=== PATIENT | male | born 2005 ===

== ENCOUNTER 2023-04-07 07:04 | Inpatient (IN) | payer SELFPAY ==
[~2023-04-07] VITALS: Ht 170 cm; Wt 75.6 kg
[2023-04-07] MEDS ORDERED: NS IV 1000 ML 1,000 ML IV SCH (07:30)
[2023-04-07] MEDS ORDERED: ONDANSETRON 4 MG/2 ML (SDV) Z0FRAN IVP ONE (07:30)
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
[2023-04-07 07:38] LABS: HEMATOCRIT 46 % (40-54); HEMOGLOBIN 15.8 g/dL (13.3-17.7); MEAN CORPUSCULAR HEMOGLOBIN 31 pg (25-34); MEAN CORPUSCULAR HGB CONC 34 g/dL (32-36); MEAN CORPUSCULAR VOLUME 90 fL (80-99); MEAN PLATELET VOLUME 10.8 fL (9.0-12.2); PLATELET COUNT 257 10^3/uL (130-400); WHITE BLOOD COUNT 20.9 10^3/uL (4.3-11.0)
[2023-04-07 07:44] LABS: BILIRUBIN,URINE NEGATIVE (NEGATIVE); CLARITY,URINE SL CLOUDY; COLOR,URINE YELLOW; GLUCOSE, URINE (UA) NEGATIVE (NEGATIVE); KETONES,URINE NEGATIVE (NEGATIVE); LEUKOCYTE ESTERASE ,URINE NEGATIVE (NEGATIVE); NITRITE,URINE NEGATIVE (NEGATIVE); PROTEIN,URINE TRACE (NEGATIVE)
[2023-04-07] MEDS ORDERED: IOHEXOL 350 MG/ML 100 ML (OMNIPAQUE 350) VIAL IV ONE (07:45)
[2023-04-07] MEDS ORDERED: NS 100 ML (IVPB) BAG IV ONE (07:45)
[2023-04-07 07:51] LABS: ALBUMIN 4.5 GM/DL (3.2-4.5); CHLORIDE 105 MMOL/L (98-107); POTASSIUM 3.7 MMOL/L (3.6-5.0); SODIUM 138 MMOL/L (135-145)
[2023-04-07 07:54] LABS: GLUCOSE 147 MG/DL (70-105); TOTAL PROTEIN 7.4 GM/DL (6.4-8.2)
[2023-04-07 07:55] LABS: CARBON DIOXIDE 22 MMOL/L (21-32)
[2023-04-07 07:56] LABS: BILIRUBIN,TOTAL 0.4 MG/DL (0.1-1.0)
[2023-04-07 07:57] LABS: ALKALINE PHOSPHATASE 96 U/L (40-136)
[2023-04-07 07:58] LABS: CREATININE SERUM 0.84 MG/DL (0.60-1.30); GFR ESTIMATED 129
[2023-04-07 07:58] LABS: AMPHETAMINE SCREEN, URINE NEGATIVE (NEGATIVE); BARBITURATE SCREEN URINE NEGATIVE (NEGATIVE); BENZODIAZEPINES SCREEN URINE NEGATIVE (NEGATIVE); CANNABINOID SCREEN, URINE POSITIVE (NEGATIVE); COCAINE SCREEN URINE NEGATIVE (NEGATIVE); METHADONE STAT NEGATIVE (NEGATIVE); OPIATE SCREEN URINE NEGATIVE (NEGATIVE); OXYCODONE STAT NEGATIVE (NEGATIVE); PROPOXYPHENE STAT NEGATIVE (NEGATIVE); TRICYCLIC ANTIDEPRESSANTS SCRE NEGATIVE (NEGATIVE)
[2023-04-07 07:59] LABS: BILIRUBIN,DIRECT 0.2 MG/DL (0.0-0.3); BILIRUBIN,INDIRECT 0.2 MG/DL; BUN/CREATININE RATIO 17
[2023-04-07 08:00] LABS: ALANINE AMINOTRANSFERASE 49 U/L (0-55)
[2023-04-07 08:00] LABS: AMORPHOUS SEDIMENT,UR RARE AMOR URATES /LPF; BACTERIA,URINE NEGATIVE /HPF; WBC,URINE RARE /HPF
[2023-04-07 08:01] LABS: CREATINE KINASE 1569 U/L (30-200)
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
[2023-04-07] MEDS ORDERED: NS IV 1000 ML 1,000 ML IV STA (10:04)
[2023-04-07] MEDS ORDERED: fentaNYL INJ 100 MCG/2 ML AMP IVP ONE (10:15)
[2023-04-07] MEDS ORDERED: metroNIDAZOLE 500MG/100ML IVPB 100 ML IV ONE (10:15)
[2023-04-07] MEDS ORDERED: CIPROFLOXACIN IV 400MG/200ML 200 ML IV ONE (10:15)
[2023-04-07 11:35] VITALS: BP 132/69
[2023-04-07 11:55] VITALS: BP 142/80
[2023-04-07] MEDS ORDERED: ACETAMINOPHEN 500 MG TAB (TYLENOL) PO PRN (12:15)
[2023-04-07] MEDS: NS IV 1000 ML 1,000 ML IV SCH ×2 (12:25→20:19)
[2023-04-07] MEDS ORDERED: fentaNYL INJ 100 MCG/2 ML AMP IV PRN (12:30)
[2023-04-07] MEDS ORDERED: RT-ALBUTEROL SULF 2.5 MG/3 ML PRE-MIX VIAL INH PRN (14:00)
[2023-04-07] MEDS ORDERED: ONDANSETRON 4 MG/2 ML (SDV) Z0FRAN IV PRN (15:00)
[2023-04-07] MEDS: fentaNYL INJ 100 MCG/2 ML AMP IV PRN ×4 (15:05→22:56)
[2023-04-07 15:15] VITALS: BP 141/78
[2023-04-07] MEDS: HYDROcodone/APAP 7.5 MG/325 MG (LORTAB, LORCET PLUS) TABLET PO PRN ×2 (15:58→21:00)
[2023-04-07] MEDS: metroNIDAZOLE 500 MG/100 ML IVPB (PRE-MIX) IV SCH (18:19)
[2023-04-07 20:08] VITALS: BP 131/61
[2023-04-07] MEDS: CIPROFLOXACIN IV 400MG/200ML 200 ML IV SCH (20:19)
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
[2023-04-08] VITALS (15 sets, daily range): BP systolic 128–149; BP diastolic 58–91
[2023-04-08] MEDS: metroNIDAZOLE 500 MG/100 ML IVPB (PRE-MIX) IV SCH ×3 (01:00→18:44)
[2023-04-08] MEDS: HYDROcodone/APAP 7.5 MG/325 MG (LORTAB, LORCET PLUS) TABLET PO PRN ×2 (01:01→05:18)
[2023-04-08] MEDS: fentaNYL INJ 100 MCG/2 ML AMP IV PRN ×8 (03:46→13:22)
[2023-04-08] MEDS: NS IV 1000 ML 1,000 ML IV SCH ×3 (04:24→20:49)
[2023-04-08 05:42] LABS: BASOPHILS % (AUTO) 0 % (0-10); EOSINOPHILS % (AUTO) 0 % (0-10); HEMATOCRIT 41 % (40-54); LYMPHOCYTES # (AUTO) 1.2 10^3/uL (1.0-4.0); LYMPHOCYTES % (AUTO) 7 % (12-44); MEAN CORPUSCULAR HEMOGLOBIN 31 pg (25-34); MEAN CORPUSCULAR HGB CONC 34 g/dL (32-36); MEAN CORPUSCULAR VOLUME 90 fL (80-99); MEAN PLATELET VOLUME 10.5 fL (9.0-12.2); MONOCYTES # (AUTO) 1.1 10^3/uL (0.0-1.0); MONOCYTES % (AUTO) 6 % (0-12); NEUTROPHILS # (AUTO) 14.3 10^3/uL (1.8-7.8); NEUTROPHILS % (AUTO) 86 % (42-75); PLATELET COUNT 202 10^3/uL (130-400); WHITE BLOOD COUNT 16.6 10^3/uL (4.3-11.0)
[2023-04-08 05:48] LABS: ALBUMIN 3.7 GM/DL (3.2-4.5); POTASSIUM 3.7 MMOL/L (3.6-5.0)
[2023-04-08 05:49] LABS: CALCIUM 8.8 MG/DL (8.5-10.1)
[2023-04-08 05:50] LABS: TOTAL PROTEIN 6.5 GM/DL (6.4-8.2)
[2023-04-08 05:52] LABS: BILIRUBIN,TOTAL 1.2 MG/DL (0.1-1.0)
[2023-04-08 05:54] LABS: CREATININE SERUM 0.77 MG/DL (0.60-1.30)
[2023-04-08 06:18] LABS: BAND NEUTROPHILS 1 %; NEUTROPHILS % (MANUAL) 89 %
[2023-04-08 06:19] LABS: LYMPHOCYTES % (MANUAL) 7 %; MONOCYTES % (MANUAL) 3 %; RBC MORPH NORMAL
[2023-04-08] MEDS: PANTOPRAZOLE 40 MG (PROTONIX) VIAL IV SCH (07:57)
[2023-04-08] MEDS: CIPROFLOXACIN IV 400MG/200ML 200 ML IV SCH ×2 (07:57→20:55)
[2023-04-08] MEDS ORDERED: IOHEXOL 350 MG/ML 100 ML (OMNIPAQUE 350) VIAL IV ONE (08:15)
[2023-04-08] MEDS ORDERED: HOLD METFORMIN - RECEIVED CONTRAST 20 ML VIAL IV SCH (08:15)
[2023-04-08] MEDS ORDERED: NS 100 ML (IVPB) BAG IV ONE (08:15)
--- NOTE | 2023-04-08 09:34 | Diagnostic Imaging Report ---
EXAMINATION: CT abdomen and pelvis with intravenous contrast. TECHNIQUE: Multiple contiguous axial images were obtained through the abdomen and pelvis after the uneventful administration of intravenous contrast. All CT scans use one or more of the following dose optimizing techniques: automated exposure control, MA and/or KvP adjustment based on patient size and exam type or iterative reconstruction. HISTORY: Left abdominal mass. COMPARISON: 04/07/2023. FINDINGS: Limited views of the lower thorax are unremarkable. The liver is normal without focal lesion. There is no biliary ductal dilation. Gallbladder is normal. Pancreas is normal. Spleen is normal. Adrenal glands are normal. 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 No suspicious renal lesion. There is no hydronephrosis. Bladder is decompressed by a Moore catheter. Small bowel loops are now diffusely dilated. The inflammation surrounding the sigmoid colon has increased and there is now air in the mesentery of the sigmoid colon. There are several ill-defined pockets of fluid but no loculated drainable abscess. The bowel wall thickening straddles the peritoneal reflection with the majority of the abnormality above the peritoneal reflection but the high rectum is abnormally thickened. There is a generalized small amount of free fluid in the abdomen. No abdominal or pelvic lymphadenopathy. Aorta is normal in caliber without aneurysm. There are no suspicious osseus lesions. IMPRESSION: 1. Increase in inflammation about the sigmoid colon with persistent wall thickening and increasing mesenteric stranding. There are now a few locules of gas within the mesentery in keeping with perforation. In a young patient with history of trauma, primary concern is for a large bowel injury. Differential includes a perforated mass. 2. Dilated small bowel, likely representing an ileus. 3. Findings called to Dr. Chadwick by Dr. Barrett on 04/08/2023 at 9:30 AM. Dictated by: Dictated on workstation # [id number]
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
[2023-04-08] MEDS ORDERED: SEVOFLURANE (ULTANE) 15 ML INHAL SOLN ONE ×3 (13:57→16:57)
[2023-04-08] MEDS ORDERED: ROCURONIUM 50 MG/5 ML (ZEMURON) VIAL IV ONE (13:57)
[2023-04-08] MEDS ORDERED: LIDOCAINE PF 2% 5 ML (XYLOCAINE) VIAL ONE (13:57)
[2023-04-08] MEDS ORDERED: fentaNYL INJ 100 MCG/2 ML AMP ONE ×2 (13:57→15:14)
[2023-04-08] MEDS ORDERED: MIDAZOLAM 2 MG/2 ML (VERSED) VIAL ONE (13:57)
[2023-04-08] MEDS ORDERED: proPOfol 200 MG/20 ML (DIPRIVAN) VIAL IV ONE (13:57)
[2023-04-08] MEDS ORDERED: ONDANSETRON 4 MG/2 ML (SDV) Z0FRAN ONE (13:57)
[2023-04-08] MEDS: LACTATED RINGERS 1,000 ML IV PRN ×2 (14:39→16:20)
[2023-04-08] MEDS ORDERED: ESMOLOL 100 MG/10 ML (BREVIBLOC) VIAL ONE (14:58)
[2023-04-08] MEDS ORDERED: ROPIVACAINE 5MG/ML 30ML VIAL ONE (15:58)
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
[2023-04-08] MEDS ORDERED: NALOXONE 0.4 MG/ML 1 ML (NARCAN) VIAL IV PRN (17:15)
[2023-04-08] MEDS ORDERED: diphenhydrAMINE 50 MG/ML INJ (BENADRYL) IV PRN (17:15)
[2023-04-08] MEDS ORDERED: NS IV 1000 ML 1,000 ML IV SCH (17:15)
[2023-04-08] MEDS ORDERED: fentaNYL PCA 1,000 MCG/100 ML 100 ML IV PRN (17:15)
[2023-04-08] MEDS ORDERED: morphine INJ 10 MG/ML 1ML (SYR OR VIAL) ONE (17:33)
[2023-04-08] MEDS: morphine INJ 10 MG/ML 1ML (SYR OR VIAL) IVP ONE ×2 (17:40→18:07)
[2023-04-08] MEDS ORDERED: morphine INJ 10 MG/ML 1ML (SYR OR VIAL) IVP ONE (18:00)
[2023-04-08] MEDS ORDERED: ONDANSETRON 4 MG/2 ML (SDV) Z0FRAN IVP PRN (18:00)
[2023-04-08] MEDS: ONDANSETRON 4 MG/2 ML (SDV) Z0FRAN IVP PRN ×2 (18:07→18:08)
[2023-04-08] MEDS: RT-ALBUTEROL SULF 2.5 MG/3 ML PRE-MIX VIAL INH SCH (22:09)
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
[2023-04-09] MEDS: NS IV 1000 ML 1,000 ML IV SCH ×2 (01:39→08:42)
[2023-04-09] MEDS: metroNIDAZOLE 500 MG/100 ML IVPB (PRE-MIX) IV SCH ×3 (01:39→17:46)
[2023-04-09 03:59] VITALS: BP 132/76
[2023-04-09] MEDS: HYDROcodone/APAP 7.5 MG/325 MG (LORTAB, LORCET PLUS) TABLET PO PRN ×2 (05:54→12:13)
[2023-04-09] MEDS: METOCLOPRAMIDE INJ 10 MG/2 ML (REGLAN) IV PRN ×2 (05:57→21:15)
[2023-04-09] MEDS: RT-ALBUTEROL SULF 2.5 MG/3 ML PRE-MIX VIAL INH SCH (07:14)
[2023-04-09 07:30] VITALS: BP 132/65
--- NOTE | 2023-04-09 08:18 | Anesthesia-General Post-Op ---
General Patient Condition Mental Status/LOC: Same as Preop Cardiovascular: Satisfactory Nausea/Vomiting: Absent Respiratory: Satisfactory Pain: Uncontrolled Complications: Absent Post Op Complications Complications None Follow Up Care/Instructions Patient Instructions None needed. Anesthesia/Patient Condition Patient Condition Patient is doing well, no complaints, stable vital signs, no apparent adverse anesthesia problems. No complications reported per nursing. D/C home per [facility] Criteria: AASHISH Harris CRNA Apr 09, 2023 08:18
[2023-04-09] MEDS: PANTOPRAZOLE 40 MG (PROTONIX) VIAL IV SCH (08:42)
[2023-04-09] MEDS: CIPROFLOXACIN IV 400MG/200ML 200 ML IV SCH ×2 (08:45→21:11)
[2023-04-09 11:32] LABS: BASOPHILS % (AUTO) 0 % (0-10); EOSINOPHILS % (AUTO) 0 % (0-10); HEMATOCRIT 35 % (40-54); LYMPHOCYTES # (AUTO) 0.6 10^3/uL (1.0-4.0); LYMPHOCYTES % (AUTO) 5 % (12-44); MEAN CORPUSCULAR HEMOGLOBIN 31 pg (25-34); MEAN CORPUSCULAR HGB CONC 35 g/dL (32-36); MEAN CORPUSCULAR VOLUME 91 fL (80-99); MEAN PLATELET VOLUME 10.6 fL (9.0-12.2); MONOCYTES # (AUTO) 1.2 10^3/uL (0.0-1.0); MONOCYTES % (AUTO) 9 % (0-12); NEUTROPHILS # (AUTO) 11.3 10^3/uL (1.8-7.8); NEUTROPHILS % (AUTO) 86 % (42-75); PLATELET COUNT 188 10^3/uL (130-400); WHITE BLOOD COUNT 13.3 10^3/uL (4.3-11.0)
[2023-04-09 11:39] LABS: POTASSIUM 3.9 MMOL/L (3.6-5.0)
[2023-04-09 11:40] LABS: CALCIUM 8.4 MG/DL (8.5-10.1)
[2023-04-09 11:42] VITALS: BP 134/76
[2023-04-09 11:44] LABS: CREATININE SERUM 0.73 MG/DL (0.60-1.30)
[2023-04-09] MEDS ORDERED: HYDROmorphone 2 MG/ML VIAL (DILAUDID) IV NR (14:00)
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
[2023-04-09 15:48] VITALS: BP 141/73
[2023-04-09 19:38] VITALS: BP 140/79
[2023-04-09] MEDS: ONDANSETRON 4 MG/2 ML (SDV) Z0FRAN IV PRN (20:18)
[2023-04-09] MEDS: HYDROmorphone 2 MG/ML VIAL (DILAUDID) IVP PRN (21:23)
[2023-04-09 23:36] VITALS: BP 136/72
[2023-04-10] MEDS: metroNIDAZOLE 500 MG/100 ML IVPB (PRE-MIX) IV SCH ×3 (01:08→17:20)
[2023-04-10] MEDS: HYDROmorphone 2 MG/ML VIAL (DILAUDID) IVP PRN ×8 (01:08→19:56)
[2023-04-10] MEDS: METOCLOPRAMIDE INJ 10 MG/2 ML (REGLAN) IV PRN ×2 (03:30→08:38)
[2023-04-10 04:00] VITALS: BP 139/72
[2023-04-10] MEDS: NS IV 1000 ML 1,000 ML IV SCH ×4 (05:15→14:48)
[2023-04-10 07:33] VITALS: BP 148/92
[2023-04-10 08:05] LABS: BASOPHILS % (AUTO) 0 % (0-10); EOSINOPHILS % (AUTO) 0 % (0-10); HEMATOCRIT 40 % (40-54); HEMOGLOBIN 13.5 g/dL (13.3-17.7); LYMPHOCYTES # (AUTO) 0.9 10^3/uL (1.0-4.0); LYMPHOCYTES % (AUTO) 6 % (12-44); MEAN CORPUSCULAR HEMOGLOBIN 31 pg (25-34); MEAN CORPUSCULAR HGB CONC 34 g/dL (32-36); MEAN CORPUSCULAR VOLUME 91 fL (80-99); MONOCYTES # (AUTO) 1.3 10^3/uL (0.0-1.0); MONOCYTES % (AUTO) 8 % (0-12); NEUTROPHILS # (AUTO) 13.4 10^3/uL (1.8-7.8); NEUTROPHILS % (AUTO) 85 % (42-75); PLATELET COUNT 272 10^3/uL (130-400); WHITE BLOOD COUNT 15.7 10^3/uL (4.3-11.0)
[2023-04-10 08:17] LABS: CALCIUM 8.7 MG/DL (8.5-10.1)
[2023-04-10 08:22] LABS: CREATININE SERUM 0.7 MG/DL (0.60-1.30)
[2023-04-10] MEDS: CIPROFLOXACIN IV 400MG/200ML 200 ML IV SCH ×2 (08:26→22:31)
[2023-04-10] MEDS: PANTOPRAZOLE 40 MG (PROTONIX) VIAL IV SCH ×2 (08:26→22:31)
[2023-04-10] MEDS: RT-ALBUTEROL SULF 2.5 MG/3 ML PRE-MIX VIAL INH SCH ×3 (09:03→20:23)
[2023-04-10] MEDS: ONDANSETRON 4 MG/2 ML (SDV) Z0FRAN IV PRN (11:20)
[2023-04-10 11:47] VITALS: BP 170/105
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
[2023-04-10] MEDS: HYDROcodone/APAP 7.5 MG/325 MG (LORTAB, LORCET PLUS) TABLET PO PRN (12:12)
--- NOTE | 2023-04-10 13:47 | Physical Therapy Progress Note ---
Therapy Progress Note Patient on Hold per RN due to current medical condition. PT will attempt tomorrow COLE Shane PT Apr 10, 2023 13:47
[2023-04-10] MEDS: PROMETHAZINE INJ 25 MG/ML (PHENERGAN) AMP IVP PRN ×2 (14:18→17:19)
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
[2023-04-10 14:48] LABS: ALBUMIN 3.2 GM/DL (3.2-4.5)
[2023-04-10 14:53] LABS: BILIRUBIN,TOTAL 0.5 MG/DL (0.1-1.0)
[2023-04-10 14:56] LABS: BILIRUBIN,DIRECT 0.2 MG/DL (0.0-0.3); BILIRUBIN,INDIRECT 0.3 MG/DL
[2023-04-10 15:42] VITALS: BP 143/94
[2023-04-10] MEDS ORDERED: IOHEXOL 350 MG/ML 100 ML (OMNIPAQUE 350) VIAL IV ONE (17:15)
[2023-04-10] MEDS ORDERED: NS 100 ML (IVPB) BAG IV ONE (17:15)
--- NOTE | 2023-04-10 17:17 | Diagnostic Imaging Report ---
PROCEDURE: CT abdomen and pelvis with and without contrast. TECHNIQUE: Precontrast acquisitions were acquired through the abdomen and pelvis. Multiple contiguous axial images were obtained through the abdomen and pelvis after the administration of intravenous contrast. Auto Exposure Controls were utilized during the CT exam to meet ALARA standards for radiation dose reduction. INDICATION: Two days postop bowel resection with worsening pain and nausea. COMPARISON: Exam is compared with the study of 04/08/2023. FINDINGS: There are tiny nonloculated pleural effusions and subjacent basilar atelectasis. There is gastric, duodenal, and diffuse small bowel dilatation with differential air-fluid levels. The magnitude of bowel dilatation is suspicious for a high-grade small bowel obstruction. Small bowel caliber is maximal 5 cm. There is a staple line at the rectosigmoid and a new left lower quadrant diverting ostomy. Interval postsurgical change, presumed to account for the extraluminal gas deep to the lower abdominopelvic wall. The colon is nondilated. There does appear to be a short segment of nondilated terminal ileum in the right lower quadrant; however, the remaining small bowel is severely dilated. Liver, spleen, adrenals, and pancreas are unremarkable. 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 No contrast extravasation. The urinary bladder is unremarkable. No findings of hemorrhage. IMPRESSION: 1. Findings suspect for high-grade distal small bowel obstruction. Interval surgical changes to the large bowel and left lower quadrant ostomy. Extraluminal gas presumed postop with no abscess or other drainable fluid collection, and no findings of hemorrhage. 2. Trace pleural effusions. Congenital horseshoe kidney without obstruction of either nonacute renal moiety. Dictated by: Dictated on workstation # [id number]
--- NOTE | 2023-04-10 17:49 | Diagnostic Imaging Report ---
INDICATION: NG tube placement. EXAMINATION: Abdominal film obtained at 5:46 p.m. FINDINGS: Heart is normal in size. It is also otherwise unremarkable. The lungs are clear. There is no pneumothorax or pleural fluid. There is a left-sided subclavian central line with tip overlying the low SVC. NG tube is looped in the stomach with tip near the GE junction. IMPRESSION: No focal infiltrate or pneumothorax or pleural fluid. NG tube is looped in the stomach with tip back near the GE junction. Left subclavian central catheter, as above. Dictated by: Dictated on workstation # [id number]
[2023-04-10] MEDS: ENALAPRIL 10 MG (VASOTEC) TAB PO SCH (18:27)
[2023-04-10] MEDS ORDERED: CHLORASEPTIC SPRAY 177 ML LIQUID MC PRN (20:30)
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
[2023-04-10 21:20] VITALS: BP 141/90
[2023-04-10 23:58] VITALS: BP 136/86
[2023-04-11] VITALS (7 sets, daily range): BP systolic 129–146; BP diastolic 63–81
[2023-04-11] MEDS: HYDROmorphone 2 MG/ML VIAL (DILAUDID) IVP PRN ×6 (00:44→20:34)
[2023-04-11] MEDS: ENALAPRIL 10 MG (VASOTEC) TAB PO SCH ×4 (00:49→15:10)
[2023-04-11] MEDS: NS IV 1000 ML 1,000 ML IV SCH ×3 (01:55→17:00)
[2023-04-11] MEDS: metroNIDAZOLE 500 MG/100 ML IVPB (PRE-MIX) IV SCH ×3 (02:00→17:00)
[2023-04-11 04:35] LABS: BASOPHILS % (AUTO) 0 % (0-10); EOSINOPHILS % (AUTO) 0 % (0-10); HEMATOCRIT 36 % (40-54); HEMOGLOBIN 11.8 g/dL (13.3-17.7); LYMPHOCYTES # (AUTO) 1.2 10^3/uL (1.0-4.0); LYMPHOCYTES % (AUTO) 11 % (12-44); MEAN CORPUSCULAR HEMOGLOBIN 30 pg (25-34); MEAN CORPUSCULAR HGB CONC 33 g/dL (32-36); MEAN CORPUSCULAR VOLUME 91 fL (80-99); MEAN PLATELET VOLUME 10.1 fL (9.0-12.2); MONOCYTES # (AUTO) 1.2 10^3/uL (0.0-1.0); MONOCYTES % (AUTO) 10 % (0-12); NEUTROPHILS # (AUTO) 9.2 10^3/uL (1.8-7.8); NEUTROPHILS % (AUTO) 78 % (42-75); PLATELET COUNT 278 10^3/uL (130-400); WHITE BLOOD COUNT 11.7 10^3/uL (4.3-11.0)
[2023-04-11 04:47] LABS: CALCIUM 8.1 MG/DL (8.5-10.1); CREATININE SERUM 0.67 MG/DL (0.60-1.30); POTASSIUM 3.6 MMOL/L (3.6-5.0)
[2023-04-11] MEDS: RT-ALBUTEROL SULF 2.5 MG/3 ML PRE-MIX VIAL INH SCH ×2 (07:18→22:27)
[2023-04-11] MEDS: CIPROFLOXACIN IV 400MG/200ML 200 ML IV SCH ×2 (08:16→20:34)
[2023-04-11] MEDS: PANTOPRAZOLE 40 MG (PROTONIX) VIAL IV SCH ×2 (08:16→20:34)
--- NOTE | 2023-04-11 08:44 | Diagnostic Imaging Report ---
EXAMINATION: Chest 1 view HISTORY: Tube placement COMPARISON: 04/10/2023 FINDINGS: Gastric tube is in the stomach. Left subclavian catheter is in the superior vena cava. A safety pin projects over the chest. No edema or pneumonia. No pleural effusion or pneumothorax. Heart size is normal. Bowel loops are severely dilated in the upper abdomen. IMPRESSION: 1. Clear lungs. 2. Dilated bowel loops in the upper abdomen. Dictated by: Dictated on workstation # [id number]
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
[2023-04-11] MEDS: PROMETHAZINE INJ 25 MG/ML (PHENERGAN) AMP IVP PRN (12:08)
[2023-04-11] MEDS ORDERED: hydrALAZINE (APESOLINE) 20 MG/ML VIAL IV PRN (15:45)
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
[2023-04-11] MEDS: ONDANSETRON 4 MG/2 ML (SDV) Z0FRAN IV PRN (17:00)
[2023-04-12] MEDS: NS IV 1000 ML 1,000 ML IV SCH ×3 (02:25→22:48)
[2023-04-12] MEDS: metroNIDAZOLE 500 MG/100 ML IVPB (PRE-MIX) IV SCH ×3 (02:25→17:07)
[2023-04-12] MEDS: HYDROmorphone 2 MG/ML VIAL (DILAUDID) IVP PRN ×6 (02:25→17:29)
[2023-04-12 04:05] VITALS: BP 127/50
[2023-04-12 04:21] LABS: BASOPHILS % (AUTO) 0 % (0-10); EOSINOPHILS # (AUTO) 0.1 10^3/uL (0.0-0.3); EOSINOPHILS % (AUTO) 1 % (0-10); HEMATOCRIT 32 % (40-54); HEMOGLOBIN 10.6 g/dL (13.3-17.7); LYMPHOCYTES # (AUTO) 1.4 10^3/uL (1.0-4.0); LYMPHOCYTES % (AUTO) 13 % (12-44); MEAN CORPUSCULAR HEMOGLOBIN 30 pg (25-34); MEAN CORPUSCULAR HGB CONC 33 g/dL (32-36); MEAN CORPUSCULAR VOLUME 91 fL (80-99); MEAN PLATELET VOLUME 9.1 fL (9.0-12.2); MONOCYTES % (AUTO) 9 % (0-12); NEUTROPHILS # (AUTO) 8.4 10^3/uL (1.8-7.8); NEUTROPHILS % (AUTO) 76 % (42-75); PLATELET COUNT 255 10^3/uL (130-400); WHITE BLOOD COUNT 11.1 10^3/uL (4.3-11.0)
[2023-04-12 04:35] LABS: CALCIUM 7.9 MG/DL (8.5-10.1); CREATININE SERUM 0.6 MG/DL (0.60-1.30); POTASSIUM 3.7 MMOL/L (3.6-5.0)
[2023-04-12 07:47] VITALS: BP 137/64
[2023-04-12] MEDS: RT-ALBUTEROL SULF 2.5 MG/3 ML PRE-MIX VIAL INH SCH ×2 (08:16→19:34)
[2023-04-12] MEDS: CIPROFLOXACIN IV 400MG/200ML 200 ML IV SCH ×2 (08:16→20:42)
[2023-04-12] MEDS: PANTOPRAZOLE 40 MG (PROTONIX) VIAL IV SCH ×2 (08:16→20:42)
[2023-04-12] MEDS ORDERED: LORazepam INJ 2 MG/ML (ATIVAN) VIAL IVP PRN (10:30)
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
[2023-04-12] MEDS: METOCLOPRAMIDE INJ 10 MG/2 ML (REGLAN) IVP SCH ×3 (11:17→22:48)
[2023-04-12 11:28] VITALS: BP 143/80
[2023-04-12] MEDS: HYDROcodone/APAP 7.5 MG/325 MG (LORTAB, LORCET PLUS) TABLET PO PRN ×2 (16:29→22:24)
[2023-04-12 16:36] VITALS: BP 139/76
[2023-04-12 20:29] VITALS: BP 134/67
[2023-04-12 23:33] VITALS: BP 141/66
[2023-04-13] MEDS: metroNIDAZOLE 500 MG/100 ML IVPB (PRE-MIX) IV SCH ×3 (02:05→17:26)
[2023-04-13] MEDS: HYDROcodone/APAP 7.5 MG/325 MG (LORTAB, LORCET PLUS) TABLET PO PRN ×3 (02:08→14:49)
[2023-04-13 04:27] VITALS: BP 129/74
[2023-04-13] MEDS: METOCLOPRAMIDE INJ 10 MG/2 ML (REGLAN) IVP SCH ×3 (05:38→17:26)
[2023-04-13 05:54] LABS: BASOPHILS % (AUTO) 0 % (0-10); EOSINOPHILS # (AUTO) 0.1 10^3/uL (0.0-0.3); EOSINOPHILS % (AUTO) 1 % (0-10); HEMATOCRIT 33 % (40-54); HEMOGLOBIN 11.5 g/dL (13.3-17.7); LYMPHOCYTES # (AUTO) 1.6 10^3/uL (1.0-4.0); LYMPHOCYTES % (AUTO) 12 % (12-44); MEAN CORPUSCULAR HEMOGLOBIN 31 pg (25-34); MEAN CORPUSCULAR HGB CONC 35 g/dL (32-36); MEAN CORPUSCULAR VOLUME 90 fL (80-99); MEAN PLATELET VOLUME 9.2 fL (9.0-12.2); MONOCYTES % (AUTO) 7 % (0-12); NEUTROPHILS # (AUTO) 10.6 10^3/uL (1.8-7.8); NEUTROPHILS % (AUTO) 78 % (42-75); PLATELET COUNT 285 10^3/uL (130-400); WHITE BLOOD COUNT 13.5 10^3/uL (4.3-11.0)
[2023-04-13 06:14] LABS: CALCIUM 8.1 MG/DL (8.5-10.1); CREATININE SERUM 0.64 MG/DL (0.60-1.30); POTASSIUM 3.8 MMOL/L (3.6-5.0)
[2023-04-13] MEDS: RT-ALBUTEROL SULF 2.5 MG/3 ML PRE-MIX VIAL INH SCH ×2 (07:07→21:57)
[2023-04-13 07:35] VITALS: BP 119/68
[2023-04-13] MEDS: PANTOPRAZOLE 40 MG (PROTONIX) VIAL IV SCH ×2 (08:17→20:01)
[2023-04-13] MEDS: NS IV 1000 ML 1,000 ML IV SCH ×3 (08:18→20:29)
[2023-04-13] MEDS: CIPROFLOXACIN IV 400MG/200ML 200 ML IV SCH ×2 (08:18→20:01)
--- NOTE | 2023-04-13 11:16 | Occ Therapy Progress Note ---
Therapy Progress Note Per PT, patient is ambulatory w/ family and performs tasks w/o assist, discontinue OT LETY smith MICHELLE OT Apr 13, 2023 11:16
[2023-04-13] MEDS: HYDROmorphone 2 MG/ML VIAL (DILAUDID) IVP PRN (11:28)
[2023-04-13 12:00] VITALS: BP 124/69
--- NOTE | 2023-04-13 12:57 | Diagnostic Imaging Report ---
INDICATION: Ileus. Postoperative abdomen. COMPARISON: 04/10/2023. FINDINGS: Multiple frontal radiographic views of the abdomen were obtained. Radiopaque tubing is again noted projecting over the lower abdomen and upper pelvis. Surgical skin angie are present. Ostomy site is noted within the left lower abdominal quadrant. No unexpected radiopaque foreign bodies are seen. There is no large collection of free intraperitoneal air. Multiple air-filled moderately distended loops of small bowel are noted throughout. Residual air and stool is also seen within the colon. Included portions of the lung bases are clear. Osseous structures show no acute abnormalities. IMPRESSION: 1. Moderate diffuse gaseous distention of the small bowel. Postoperative ileus is favored. Dictated by: Dictated on workstation # [id number]
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
[2023-04-13] MEDS ORDERED: HYPOCHLOROUS ACID/NaCl (VASHE) 250 ML IR PRN (15:15)
[2023-04-13 16:14] VITALS: BP 133/73
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
[2023-04-13] MEDS ORDERED: KETOROLAC 30 MG/ML VIAL IVP NR (17:15)
[2023-04-13 19:04] VITALS: BP 132/79
[2023-04-13] MEDS: oxyCODONE/APAP 10/325MG (PERCOCET 10) TABLET PO PRN (21:12)
[2023-04-14 00:51] VITALS: BP 118/72
[2023-04-14] MEDS: metroNIDAZOLE 500 MG/100 ML IVPB (PRE-MIX) IV SCH ×2 (00:55→09:13)
[2023-04-14] MEDS: METOCLOPRAMIDE INJ 10 MG/2 ML (REGLAN) IVP SCH ×3 (00:55→12:27)
[2023-04-14 02:57] VITALS: BP 126/74
[2023-04-14] MEDS: oxyCODONE/APAP 10/325MG (PERCOCET 10) TABLET PO PRN ×2 (03:01→07:14)
[2023-04-14] MEDS: ONDANSETRON 4 MG/2 ML (SDV) Z0FRAN IV PRN (03:11)
[2023-04-14] MEDS: NS IV 1000 ML 1,000 ML IV SCH ×2 (05:04→12:27)
[2023-04-14 07:45] VITALS: BP 120/60
[2023-04-14] MEDS: RT-ALBUTEROL SULF 2.5 MG/3 ML PRE-MIX VIAL INH SCH (07:57)
[2023-04-14] MEDS: PANTOPRAZOLE 40 MG (PROTONIX) VIAL IV SCH (07:58)
[2023-04-14] MEDS: CIPROFLOXACIN IV 400MG/200ML 200 ML IV SCH (07:59)
[2023-04-14] MEDS ORDERED: HYDR-3817 PO (11:49)
[2023-04-14] MEDS ORDERED: AMOX1TAB12 PO (11:49)
--- NOTE | 2023-04-14 11:50 | Discharge Inst-Surgical ---
D/C Lap Instructions-SARAH New, Converted, or Re-Newed RX: RX on Chart Follow Up Appt in 1 week Activity as tolerated No driving for 24 hours No driving while on pain medications Incentive Spirometry use every 2 hours while awake Regular Diet Symptoms to Report: Fever over 101 degree F, Nausea/Vomiting Infection Signs and Symptoms to report: Increased redness, Foul odor of wound, Increased drainage Bathing instructions: May shower Operative Area Clean/Dry; Keep incision clean/dry If any problems/questions: Contact your physician or go to Emergency Room JEAN SIMTH MD Apr 14, 2023 11:50
[2023-04-14 12:26] VITALS: BP 124/59
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
== END 2023-04-14 15:35 | disposition home health service (06) | DRG 330 ==
LOC: ER 07:08 → 4TH 11:18 → OBSVTOIN 04-08 13:57
PROVIDERS: ADMIT Surgery; ATTEND Surgery
PROC: 0DB80ZZ Excision of Small Intestine, Open Approach (ICD-10-PCS; 2023-04-08)
PROC: 02HV33Z Insertion of Infusion Device into Superior Vena Cava, Percutaneous Approach (ICD-10-PCS; 2023-04-08)
PROC: 0DTN0ZZ Resection of Sigmoid Colon, Open Approach (ICD-10-PCS; principal; 2023-04-08 14:39)
PROC: 0DBP0ZZ Excision of Rectum, Open Approach (ICD-10-PCS; 2023-04-08 14:39)
DX: S36.533A Laceration of sigmoid colon, initial encounter (principal); K91.30 Postprocedural intestinal obstruction, unspecified as to partial versus complete; S36.438A Laceration of other part of small intestine, initial encounter; V89.2XXA Person injured in unspecified motor-vehicle accident, traffic, initial encounter; F41.9 Anxiety disorder, unspecified; S06.0X0A Concussion without loss of consciousness, initial encounter; S20.212A Contusion of left front wall of thorax, initial encounter; S93.401A Sprain of unspecified ligament of right ankle, initial encounter; I10 Essential (primary) hypertension
CPT/HCPCS: 36415; 51702; 70450; 70498; 71045; 71260; 72170; 74018; 74019; 74177; 74178; 80048; 80053; 80076; 80306; 80320; 81000; 82550; 82947; 85007; 85025; 85027; 93005; 93041; 94640; 94664; 94760; 96361; 96365; 96367; 96368; 96375; G0378

== ENCOUNTER 2023-04-23 16:56 | Observation (INO) | payer SELFPAY ==
[~2023-04-23] VITALS: Ht 167 cm; Wt 68.4 kg
[~2023-04-23 16:56] MED LIST: AMOX1TAB12 PO; HYDR-3817 PO
[2023-04-23 17:15] LABS: BASOPHILS % (AUTO) 0 % (0-10); EOSINOPHILS # (AUTO) 0.1 10^3/uL (0.0-0.3); EOSINOPHILS % (AUTO) 1 % (0-10); HEMATOCRIT 43 % (40-54); HEMOGLOBIN 14.4 g/dL (13.3-17.7); LYMPHOCYTES # (AUTO) 2.5 10^3/uL (1.0-4.0); LYMPHOCYTES % (AUTO) 26 % (12-44); MEAN CORPUSCULAR HEMOGLOBIN 30 pg (25-34); MEAN CORPUSCULAR HGB CONC 34 g/dL (32-36); MEAN CORPUSCULAR VOLUME 90 fL (80-99); MEAN PLATELET VOLUME 9.1 fL (9.0-12.2); MONOCYTES # (AUTO) 0.7 10^3/uL (0.0-1.0); MONOCYTES % (AUTO) 8 % (0-12); NEUTROPHILS % (AUTO) 63 % (42-75); PLATELET COUNT 527 10^3/uL (130-400); WHITE BLOOD COUNT 9.5 10^3/uL (4.3-11.0)
[2023-04-23 17:20] LABS: ALBUMIN 4.2 GM/DL (3.2-4.5)
[2023-04-23 17:22] LABS: CALCIUM 9.9 MG/DL (8.5-10.1)
[2023-04-23] MEDS ORDERED: fentaNYL INJECTION 100 MCG/2 ML VIAL IVP STA (17:22)
[2023-04-23 17:23] LABS: TOTAL PROTEIN 7.6 GM/DL (6.4-8.2)
[2023-04-23 17:25] LABS: BILIRUBIN,TOTAL 0.4 MG/DL (0.1-1.0)
[2023-04-23 17:27] LABS: CREATININE SERUM 0.7 MG/DL (0.60-1.30)
[2023-04-23] MEDS ORDERED: NS IV 1000 ML 1,000 ML IV SCH (17:30)
[2023-04-23] MEDS ORDERED: ONDANSETRON 4 MG/2 ML (SDV) Z0FRAN IVP ONE (17:30)
--- NOTE | 2023-04-23 17:32 | ED Abdominal Pain ---
General Chief Complaint: Abdominal/GI Problems Stated Complaint: ABD PAIN Nursing Triage Note: PT AMB TO [facility] WITH CC OF LLQ ABD PAIN, NEAR THE SITE OF HIS STOMA. PT REPORTS HAD STOMA PLACED 04/[address] CHADWICK AFTER HAVING A MASS REMOVED. PT STATES PAIN BEGAN THIS AM. DENIES N/V Source of Information: Patient Exam Limitations: Language Barrier History of Present Illness Date Seen by Provider: Apr 23, 2023 Time Seen by Provider: 17:10 Initial Comments 17-year-old Ukrainian-speaking male presents the ER with complaint of generalized abdominal pain starting this afternoon. States he was not doing thing when the pain started he was just resting. He had a mass removed from his abdomen and a bowel resection on 04/08/[address] Chadwick, surgery, here at this facility. He had a colostomy bag placed at that time. He is scheduled to follow-up with Dr. Chadwick on May 21. He states that he took his pain medication when the pain started, but states that his pain medication sometimes makes his pain worse. Denies fevers, dysuria. He currently has stool in his colostomy bag. He reports headache and nausea as well, denies vomiting. Allergies and Home Medications Allergies Coded Allergies: No Known Drug Allergies (Unverified , 04/07/23) Patient Home Medication List Home Medication List Reviewed: Yes Amoxicillin/Potassium Clav (Amox Tr-K Clv 875-125 mg Tab) 875 Mg-125 Mg Tablet, 1 EACH PO BID Prescribed by: JEAN CHADWICK on 04/14/23 1149 Hydrocodone/Acetaminophen (Hydrocodone-Acetamin 7.5-325) 7.5 Mg-325 Mg Tablet, 1 EACH PO Q4H PRN for PAIN-BREAKTHROUGH Prescribed by: JEAN CHADWICK on 04/14/23 1149 Review of Systems Review of Systems Constitutional: see HPI Past Zhgrhqh-Dyrvcj-Amsgjf Hx Patient Social History Tobacco Use?: No Substance use?: No Alcohol Use?: No Pt feels they are or have been: No Immunizations Up To Date First/Initial COVID19 Vaccinat: YES Second COVID19 Vaccination Kings: YES Third COVID19 Vaccination Date: YES Past Medical History Surgery/Hospitalization HX: ABD MASS Family Medical History No Pertinent Family Hx Physical Exam Vital Signs Vital Signs - First Documented 04/23/23 17:01 Temp 36.9 Pulse 72 Resp 20 B/P (MAP) 145/86 (105) Pulse Ox 100 O2 Delivery Room Air Capillary Refill : Less Than 3 Seconds Height/Weight/BMI Height: '" Weight: lbs. oz. kg; 26.15 BMI Method: General Appearance: severe distress Neck: supple, normal inspection Respiratory: lungs clear, normal breath sounds, no respiratory distress, no accessory muscle use Cardiovascular: regular rate, rhythm Gastrointestinal: normal bowel sounds, soft, guarding (All 4 quadrants), t enderness (All 4 quadrants), other (Colostomy, stoma appears within normal limits, stool in colostomy bag) Extremities: normal range of motion, normal inspection Neurologic/Psychiatric: alert, normal mood/affect Skin: normal color, warm/dry Progress/Results/Core Measures Results/Orders Lab Results Laboratory Tests Test 04/23/23 17:05 04/23/23 19:20 Range/Units White Blood Count 9.5 4.3-11.0 10^3/uL Red Blood Count 4.75 4.30-5.52 10^6/uL Hemoglobin 14.4 13.3-17.7 g/dL Hematocrit 43 40-54 % Mean Corpuscular Volume 90 80-99 fL Mean Corpuscular Hemoglobin 30 25-34 pg Mean Corpuscular Hemoglobin Concent 34 32-36 g/dL Red Cell Distribution Width 12.6 10.0-14.5 % Platelet Count 527 H 130-400 10^3/uL Mean Platelet Volume 9.1 9.0-12.2 fL Immature Granulocyte % (Auto) 1 % Neutrophils (%) (Auto) 63 42-75 % Lymphocytes (%) (Auto) 26 12-44 % Monocytes (%) (Auto) 8 0-12 % Eosinophils (%) (Auto) 1 0-10 % Basophils (%) (Auto) 0 0-10 % Neutrophils # (Auto) 6.0 1.8-7.8 10^3/uL Lymphocytes # (Auto) 2.5 1.0-4.0 10^3/uL Monocytes # (Auto) 0.7 0.0-1.0 10^3/uL Eosinophils # (Auto) 0.1 0.0-0.3 10^3/uL Basophils # (Auto) 0.0 0.0-0.1 10^3/uL Immature Granulocyte # (Auto) 0.1 0.0-0.1 10^3/uL Sodium Level 138 135-145 MMOL/L Potassium Level 4.0 3.6-5.0 MMOL/L Chloride Level 100 98-107 MMOL/L Carbon Dioxide Level 25 21-32 MMOL/L Anion Gap 13 5-14 MMOL/L Blood Urea Nitrogen 11 7-18 MG/DL Creatinine 0.70 0.60-1.30 MG/DL Estimat Glomerular Filtration Rate 136 BUN/Creatinine Ratio 16 Glucose Level 98 70-105 MG/DL Calcium Level 9.9 8.5-10.1 MG/DL Corrected Calcium 9.7 8.5-10.1 MG/DL Total Bilirubin 0.4 0.1-1.0 MG/DL Aspartate Amino Transf (AST/SGOT) 34 5-34 U/L Alanine Aminotransferase (ALT/SGPT) 93 H 0-55 U/L Alkaline Phosphatase 121 40-136 U/L Total Protein 7.6 6.4-8.2 GM/DL Albumin 4.2 3.2-4.5 GM/DL Lipase 184 H 8-78 U/L Urine Color YELLOW Urine Clarity CLEAR Urine pH 7.5 5-9 Urine Specific [place] 1.010 L 1.016-1.022 Urine Protein NEGATIVE NEGATIVE Urine Glucose (UA) NEGATIVE NEGATIVE Urine Ketones NEGATIVE NEGATIVE Urine Nitrite NEGATIVE NEGATIVE Urine Bilirubin NEGATIVE NEGATIVE Urine Urobilinogen 0.2 < = 1.0 MG/DL Urine Leukocyte Esterase NEGATIVE NEGATIVE Urine RBC (Auto) NEGATIVE NEGATIVE Urine RBC NONE /HPF Urine WBC NONE /HPF Urine Squamous Epithelial Cells NONE /HPF Urine Crystals NONE /LPF Urine Bacteria TRACE /HPF Urine Casts NONE /LPF Urine Mucus NEGATIVE /LPF Urine Culture Indicated NO My Orders Orders - ERIC ABRAHAM APRN Comprehensive Metabolic Panel (04/23/23 17:09) Lipase (04/23/23 17:09) Ua Culture If Indicated (04/23/23 17:09) Ed Iv/Invasive Line Start (04/23/23 17:09) Cbc With Automated Diff (04/23/23 17:09) Ondansetron Injection (Zofran Injectio (04/23/23 17:30) Fentanyl Inj (Sublimaze Injection) (04/23/23 17:22) Ct Abdomen/Pelvis W (04/23/23 17:22) Ns Iv 1000 Ml (Sodium Chloride 0.9%) (04/23/23 17:30) Iohexol Injection (Omnipaque 350 Mg/Ml 1 (04/23/23 17:45) Ns (Ivpb) (Sodium Chloride 0.9% Ivpb Bag (04/23/23 17:45) Fentanyl Inj (Sublimaze Injection) (04/23/23 19:00) Ed Admission (Communication) (04/23/23 20:32) Medications Given in ED Current Medications Medications Dose Ordered Sig/Samantha Route Start Time Stop Time Status Last Admin Dose Admin Fentanyl Citrate 75 mcg ONCE ONCE IVP 04/23/23 19:00 04/23/23 19:01 DC 04/23/23 19:13 75 MCG Iohexol 100 ml ONCE ONCE IV 04/23/23 17:45 04/23/23 17:46 DC 04/23/23 17:47 80 ML Ondansetron HCl 4 mg ONCE ONCE IVP 04/23/23 17:30 04/23/23 17:31 DC 04/23/23 17:31 4 MG Sodium Chloride 100 ml ONCE ONCE IV 04/23/23 17:45 04/23/23 17:46 DC 04/23/23 17:47 80 ML Vital Signs/I&O 04/23/23 17:01 Temp 36.9 Pulse 72 Resp 20 B/P (MAP) 145/86 (105) Pulse Ox 100 O2 Delivery Room Air Blood Pressure Mean: 105 Progress Progress Note : Progress Note Patient seen and evaluated, lying in bed, severe distress pain. Based on exam and symptoms, differential diagnosis includes but is not limited to bowel obstruction, perforated bowel, appendicitis, cholecystitis, pancreatitis, UTI, other abdominal pathologies. Work-up initially including CBC, CMP, lipase, UA, CT abdomen pelvis. IV fluids, fentanyl, Zofran ordered. [address] reviewed. CBC grossly normal, platelets elevated 527. CMP grossly normal. ALT elevated 93. Lipase elevated 184. CT shows mid small bowel obstruction with markedly dilated proximal and mid jejunum with transition point in the right lower quadrant at the level of the proximal ileum. Waiting on urinalysis. I attempted to call Dr. Chadwick, surgery, did not answer. 1855 I attempted to call Dr. Chadwick again. I called and spoke with powerhouse engineer who states Dr. Chadwick is currently in surgery. Will await for Dr. Chadwick's return phone call. Patient requesting more pain medication, this is ordered. Results discussed with patient. 2021 Dr. Chadwick, surgery, returned my phone call. He agrees to admit patient. He would like me to place admission orders. Diagnostic Imaging Diagonstic Imaging: CT Plain Films/CT/US/NM/MRI: abdomen, pelvis Comments [facility], [place] NAME: CONTRERAS AZUL [facility] REC#: [id number] PT STATUS: REG ER : 2005 PHYSICIAN: ERIC ABRAHAM APRN ADMIT DATE: 04/23/23/ER Signed Date of Exam:04/23/23 CT ABDOMEN/PELVIS W PROCEDURE: CT abdomen and pelvis with contrast. TECHNIQUE: Multiple contiguous axial images were obtained through the abdomen and pelvis after administration of intravenous contrast. Auto Exposure Controls were utilized during the CT exam to meet ALARA standards for radiation dose reduction. All CT scans use one or more of the following dose optimizing techniques: Automated exposure control, MA and/or KvP adjustment based on patient size and exam type or iterative reconstruction. INDICATION: 17-year-old male with abdominal pain post colon resection with a left lower quadrant colostomy. COMPARISONS: 04/10/2023. FINDINGS: Lung bases are clear. Cardiac contour is normal. Liver shows uniform attenuation. Gallbladder is nondistended. Spleen and GE junction are normal. Stomach and duodenal sweep are unremarkable. Pancreas shows sharp margins. Adrenals are normal. 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 Partially filled bladder is normal. The nonopacified loops of small bowel show dilated loops primarily involving the jejunum with a mostly decompressed ileum. The large bowel contains fecal material and gas. There is a left lower quadrant colostomy. There is normal caliber of the aorta, iliac and femoral arteries with normal origins of the visceral arteries. IMPRESSION: 1. In keeping with the patient's history, there is a previous partial left colectomy with left lower quadrant ostomy. 2. There is unfavorable change with development of a mid small bowel obstruction with markedly dilated proximal and mid jejunum with transition point in the right lower quadrant at the level of the proximal ileum. There is also an enteric anastomosis in the right lower quadrant. 3. Incidental horseshoe kidney. Dictated by: Dictated on workstation # [id number] Dict: 04/23/231752 Trans: 04/23/231806 [id number] Interpreted by: ALEJO RIVERA MD Electronically signed by: ALEJO RIVERA MD 04/23/231806 Departure Communication (Admissions) Time/Spoke to Admitting Phy: 20:22 Dr. Chadwick, surgery. See progress note. Impression Primary Impression: Small bowel obstruction Disposition: ADMITTED INPATIENT Condition: Stable Admissions Decision to Admit Reason: Admit from ER (General) Decision to Admit/Date: Apr 23, 2023 Time/Decision to Admit Time: 20:22 Departure-Patient Inst. Referrals: NO,LOCAL PHYSICIAN (PCP/Family) Primary Care Physician ERIC ABRAHAM APRN Apr 23, 2023 17:32
[2023-04-23] MEDS ORDERED: IOHEXOL 350 MG/ML 100 ML (OMNIPAQUE 350) VIAL IV ONE (17:45)
[2023-04-23] MEDS ORDERED: NS 100 ML (IVPB) BAG IV ONE (17:45)
--- NOTE | 2023-04-23 18:02 | Diagnostic Imaging Report ---
PROCEDURE: CT abdomen and pelvis with contrast. TECHNIQUE: Multiple contiguous axial images were obtained through the abdomen and pelvis after administration of intravenous contrast. Auto Exposure Controls were utilized during the CT exam to meet ALARA standards for radiation dose reduction. All CT scans use one or more of the following dose optimizing techniques: Automated exposure control, MA and/or KvP adjustment based on patient size and exam type or iterative reconstruction. INDICATION: 17-year-old male with abdominal pain post colon resection with a left lower quadrant colostomy. COMPARISONS: 04/10/2023. FINDINGS: Lung bases are clear. Cardiac contour is normal. Liver shows uniform attenuation. Gallbladder is nondistended. Spleen and GE junction are normal. Stomach and duodenal sweep are unremarkable. Pancreas shows sharp margins. Adrenals are normal. 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 Partially filled bladder is normal. The nonopacified loops of small bowel show dilated loops primarily involving the jejunum with a mostly decompressed ileum. The large bowel contains fecal material and gas. There is a left lower quadrant colostomy. There is normal caliber of the aorta, iliac and femoral arteries with normal origins of the visceral arteries. IMPRESSION: 1. In keeping with the patient's history, there is a previous partial left colectomy with left lower quadrant ostomy. 2. There is unfavorable change with development of a mid small bowel obstruction with markedly dilated proximal and mid jejunum with transition point in the right lower quadrant at the level of the proximal ileum. There is also an enteric anastomosis in the right lower quadrant. 3. Incidental horseshoe kidney. Dictated by: Dictated on workstation # [id number]
[2023-04-23] MEDS ORDERED: fentaNYL INJECTION 100 MCG/2 ML VIAL IVP ONE (19:00)
[2023-04-23 19:28] LABS: BILIRUBIN,URINE NEGATIVE (NEGATIVE); CLARITY,URINE CLEAR; COLOR,URINE YELLOW; GLUCOSE, URINE (UA) NEGATIVE (NEGATIVE); KETONES,URINE NEGATIVE (NEGATIVE); LEUKOCYTE ESTERASE ,URINE NEGATIVE (NEGATIVE); NITRITE,URINE NEGATIVE (NEGATIVE); PH,URINE 7.5 (5-9); PROTEIN,URINE NEGATIVE (NEGATIVE)
[2023-04-23 19:41] LABS: BACTERIA,URINE TRACE /HPF
[2023-04-23 21:00] VITALS: BP 114/52
[2023-04-23] MEDS ORDERED: NS IV 1000 ML 1,000 ML ONE (21:25)
[2023-04-23] MEDS ORDERED: morphine INJ 4 MG/ML 1 ML (VIAL/SYRINGE) IV PRN (22:45)
[2023-04-23] MEDS ORDERED: PROCHLORPERAZINE 10 MG/2ML INJ (COMPAZINE) IV PRN (22:45)
[2023-04-23] MEDS ORDERED: diphenhydrAMINE INJ 50 MG/ML VIAL IV PRN (22:45)
[2023-04-23] MEDS ORDERED: ONDANSETRON 4 MG/2 ML (SDV) Z0FRAN IV PRN (22:45)
[2023-04-23 23:06] VITALS: BP 123/59
[2023-04-23] MEDS: NS IV 1000 ML 1,000 ML IV SCH (23:06)
[2023-04-24] MEDS: fentaNYL INJECTION 100 MCG/2 ML VIAL IV PRN ×3 (02:46→09:24)
[2023-04-24 03:24] VITALS: BP 128/77
[2023-04-24] MEDS: NS IV 1000 ML 1,000 ML IV SCH (05:19)
[2023-04-24 05:26] LABS: BASOPHILS % (AUTO) 1 % (0-10); EOSINOPHILS # (AUTO) 0.2 10^3/uL (0.0-0.3); EOSINOPHILS % (AUTO) 2 % (0-10); HEMATOCRIT 37 % (40-54); HEMOGLOBIN 12.3 g/dL (13.3-17.7); LYMPHOCYTES % (AUTO) 26 % (12-44); MEAN CORPUSCULAR HEMOGLOBIN 30 pg (25-34); MEAN CORPUSCULAR HGB CONC 33 g/dL (32-36); MEAN CORPUSCULAR VOLUME 91 fL (80-99); MEAN PLATELET VOLUME 9.3 fL (9.0-12.2); MONOCYTES # (AUTO) 0.6 10^3/uL (0.0-1.0); MONOCYTES % (AUTO) 8 % (0-12); NEUTROPHILS # (AUTO) 4.9 10^3/uL (1.8-7.8); NEUTROPHILS % (AUTO) 63 % (42-75); PLATELET COUNT 408 10^3/uL (130-400); WHITE BLOOD COUNT 7.9 10^3/uL (4.3-11.0)
[2023-04-24 05:44] LABS: POTASSIUM 4.1 MMOL/L (3.6-5.0)
[2023-04-24 05:45] LABS: CALCIUM 8.8 MG/DL (8.5-10.1)
[2023-04-24 05:50] LABS: CREATININE SERUM 0.62 MG/DL (0.60-1.30)
[2023-04-24 07:51] VITALS: BP 125/77
[2023-04-24 08:28] VITALS: BP 125/77
--- NOTE | 2023-04-24 08:29 | Diagnostic Imaging Report ---
INDICATION: Bowel obstruction Supine and upright abdominal films are obtained at 0532 a.m. and compared to 04/13/2023. Upright view shows no evidence of free air. There is some gas in the colon but there are distended loops of small bowel with air-fluid levels, the findings may represent partial or early small bowel obstruction. There are surgical sutures in the right lower quadrant. There appears to be an ostomy over the left lower quadrant. IMPRESSION: Findings suspicious for small bowel obstruction with distended small bowel loops and air-fluid levels. There is some gas in the colon, indicating this may represent partial or early small bowel obstruction. There is no free air. Dictated by: Dictated on workstation # [id number]
[2023-04-24 11:51] VITALS: BP 127/77
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
[2023-04-24] MEDS ORDERED: HYDR-3817 PO (14:58)
[2023-04-24] MEDS ORDERED: ONDA4TAB11 SL (14:58)
[2023-04-24 15:49] VITALS: BP 127/77
--- NOTE | 2023-05-11 14:32 | Physician Query-Final Dx ---
HUBER SUTHERLAND 05/11/23 1432: Final Diagnosis Give Final Diagnosis Please give Final Diagnosis JEAN SMITH MD 05/11/23 1535: Final Diagnosis Give Final Diagnosis ileus HUBER SUTHERLAND May 11, 2023 14:32 JEAN SMITH MD May 11, 2023 15:35
== END 2023-04-24 14:50 | disposition home or self-care (01) ==
LOC: EDUNIT# 16:56 → ER 16:57 → 4TH 20:55 → UNDOADMOB 20:55 → 4TH 21:14 → UNDODISOB 04-24 14:50
PROVIDERS: ADMIT Surgery; ATTEND Surgery
DX: K56.7 Ileus, unspecified (principal); Z93.3 Colostomy status
CPT/HCPCS: 74019; 74177; 80048; 80053; 81000; 83690; 85025 ×2; 96361 ×3; 96374; 96375 ×2; 96376 ×2; 99284; G0378; 36415

== ENCOUNTER 2023-05-13 12:31 | Outpatient (CLI) | payer SELFPAY ==
[~2023-05-13 12:31] MED LIST changes: +ONDA4TAB11 SL
== END 2023-05-13 14:19 | disposition home or self-care (01) ==
LOC: PREOP 12:31
PROVIDERS: ATTEND Surgery
DX: Z01.818 Encounter for other preprocedural examination (principal)

== ENCOUNTER 2023-05-21 09:00 | Inpatient (IN) | payer OTHER ==
[~2023-05-21] VITALS: Ht 165.1 cm; Wt 96.6 kg
[2023-05-28] VITALS (8 sets, daily range): BP systolic 106–161; BP diastolic 50–89
[2023-05-28] MEDS ORDERED: CATHETER FLUSH 10 ML SYR IVP ONE (10:20)
[2023-05-28] MEDS ORDERED: NALOXONE 0.4 MG/ML 1 ML VIAL IV ONE (10:20)
[2023-05-28] MEDS ORDERED: HYDR-3817 PO (11:04)
--- NOTE | 2023-05-28 11:04 | Progress Note-Pre Operative ---
Pre-Operative Progress Note Date H&P Reviewed: May 28, 2023 Time H&P Reviewed: 10:45 History & Physical: H&P Reviewed, Patient Examed, No changes noted Pre-Operative Diagnosis: History of perforated sigmoid colon, colostomy in place JOSE ELIAS SHETH APRN May 28, 2023 11:04
--- NOTE | 2023-05-28 11:05 | Discharge Inst-Surgical ---
D/C Lap Instructions-KIDO Reconcile Patient Problems Problems Reviewed?: Yes New, Converted, or Re-Newed RX: RX on Chart Follow Up Appt in 2 weeks Activity as tolerated No driving for 24 hours No driving while on pain medications Incentive Spirometry use every 2 hours while awake Regular Diet Symptoms to Report: Fever over 101 degree F, Nausea/Vomiting Infection Signs and Symptoms to report: Increased redness, Foul odor of wound, Increased drainage Bathing instructions: May shower Operative Area Clean/Dry; Keep incision clean/dry If any problems/questions: Contact your physician or go to Emergency Room JOSE ELIAS SHETH APRN May 28, 2023 11:05
[2023-05-28] MEDS ORDERED: ceFAZolin INJECTION 1,000 MG in NS (IVPB) 50 ML 50 ML IV ONE (11:15)
[2023-05-28] MEDS ORDERED: ONDANSETRON INJECTION 4 MG/2 ML (SDV) IVP PRN ×2 (11:30→19:45)
[2023-05-28] MEDS ORDERED: NALOXONE 0.4 MG/ML 1 ML VIAL IV PRN (11:30)
[2023-05-28] MEDS ORDERED: ACETAMINOPHEN PO PRN (11:30)
[2023-05-28] MEDS ORDERED: fentaNYL INJECTION 100 MCG/2 ML VIAL IVP PRN (11:30)
[2023-05-28] MEDS ORDERED: diphenhydrAMINE INJ 50 MG/ML VIAL IV PRN (11:30)
[2023-05-28] MEDS ORDERED: diphenhydrAMINE INJ 50 MG/ML VIAL IVP PRN (11:30)
[2023-05-28] MEDS ORDERED: NS IV 1000 ML 1,000 ML IV SCH (11:30)
[2023-05-28] MEDS ORDERED: METOCLOPRAMIDE INJ 10 MG/2 ML IV PRN (11:30)
[2023-05-28] MEDS ORDERED: metroNIDAZOLE 500MG/100ML IVPB 100 ML IV SCH (11:30)
[2023-05-28] MEDS ORDERED: 1/2 NS + KCL 20 MEQ/L 1,000 ML 1,000 ML IV SCH (11:30)
[2023-05-28] MEDS ORDERED: OXYCODONE PO PRN (11:30)
[2023-05-28] MEDS ORDERED: LIDOCAINE 1% w/EPI 1:100,000 20 ML VIAL ONE (12:45)
[2023-05-28] MEDS ORDERED: fentaNYL INJECTION 100 MCG/2 ML VIAL ONE (12:58)
[2023-05-28] MEDS ORDERED: MIDAZOLAM INJ 2 MG/2 ML VIAL ONE (12:58)
[2023-05-28] MEDS ORDERED: proPOfol INJECTION 200 MG/20 ML VIAL IV ONE (12:58)
[2023-05-28] MEDS ORDERED: dexAMETHasone INJ 10 MG/ML 1 ML VIAL ONE (12:58)
[2023-05-28] MEDS ORDERED: ROCURONIUM 50 MG/5 ML VIAL IV ONE (12:58)
[2023-05-28] MEDS ORDERED: GLYCOPYRROLATE INJ 0.2 MG/ML 2 ML VIAL ONE (12:58)
[2023-05-28] MEDS ORDERED: LIDOCAINE PF 2% 5 ML VIAL ONE (12:58)
[2023-05-28] MEDS ORDERED: ONDANSETRON INJECTION 4 MG/2 ML (SDV) ONE (12:58)
[2023-05-28] MEDS ORDERED: NEOSTIGMINE 1 MG/1ML 10 ML VIAL ONE (12:59)
[2023-05-28] MEDS ORDERED: LIDOCAINE 1% w/EPI 1:100,000 20 ML VIAL INJ ONE (13:00)
[2023-05-28] MEDS: LACTATED RINGERS 1,000 ML 1,000 ML IV PRN ×2 (13:59→17:45)
[2023-05-28] MEDS ORDERED: ceFAZolin INJECTION 2,000 MG in NS (IVPB) 50 ML 50 ML IV SCH (14:00)
--- NOTE | 2023-05-28 16:46 | Progress Note-Post Operative ---
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 Anesthesia Type get Estimated Blood Loss Estimated blood loss (mL): minimal Specimens/Packing Specimens Removed distal descending colon JEAN SMITH MD May 28, 2023 16:46
[2023-05-28] MEDS ORDERED: metroNIDAZOLE 500MG/100ML IVPB 100 ML ONE (17:24)
[2023-05-28] MEDS ORDERED: KETOROLAC INJ 30 MG/ML VIAL ONE (19:04)
[2023-05-28] MEDS ORDERED: morphine INJ 10 MG/ML 1ML (SYR OR VIAL) ONE (19:11)
[2023-05-28] MEDS ORDERED: LIDOCAINE 1% w/EPI 1:100,000 20 ML VIAL IJ ONE (19:17)
[2023-05-28] MEDS ORDERED: SEVOFLURANE (ULTANE) 15 ML INHAL SOLN ONE (19:23)
[2023-05-28] MEDS ORDERED: MEPERIDINE INJ 50 MG/ML VIAL ONE (19:34)
[2023-05-28] MEDS ORDERED: fentaNYL INJECTION 100 MCG/2 ML VIAL IVP ONE (19:45)
[2023-05-28] MEDS ORDERED: morphine INJ 10 MG/ML 1ML (SYR OR VIAL) IVP ONE (19:45)
[2023-05-28] MEDS ORDERED: MEPERIDINE INJ 50 MG/ML VIAL IVP ONE (19:45)
[2023-05-28] MEDS: 1/2 NS + KCL 20 MEQ/L 1,000 ML 1,000 ML IV SCH (22:10)
[2023-05-28] MEDS: RT-ALBUTEROL SULF 2.5 MG/3 ML PRE-MIX VIAL INH SCH (22:59)
[2023-05-29] VITALS (17 sets, daily range): BP systolic 101–159; BP diastolic 52–86
[2023-05-29] MEDS ORDERED: morphine INJ 4 MG/ML 1 ML (VIAL/SYRINGE) IVP PRN
[2023-05-29] MEDS ORDERED: ceFAZolin INJECTION 2,000 MG in NS (IVPB) 50 ML 50 ML IV SCH (01:00)
[2023-05-29] MEDS: metroNIDAZOLE 500MG/100ML IVPB 100 ML IV SCH ×4 (01:38→23:43)
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
[2023-05-29] MEDS: ONDANSETRON INJECTION 4 MG/2 ML (SDV) IV PRN (02:14)
[2023-05-29] MEDS: METOCLOPRAMIDE INJ 10 MG/2 ML IVP PRN (04:21)
[2023-05-29 05:59] LABS: HEMATOCRIT 39 % (40-54); HEMOGLOBIN 13.7 g/dL (13.3-17.7); MEAN CORPUSCULAR HEMOGLOBIN 31 pg (25-34); MEAN CORPUSCULAR HGB CONC 35 g/dL (32-36); MEAN CORPUSCULAR VOLUME 87 fL (80-99); MEAN PLATELET VOLUME 10.2 fL (9.0-12.2); PLATELET COUNT 339 10^3/uL (130-400); WHITE BLOOD COUNT 20.2 10^3/uL (4.3-11.0)
[2023-05-29 06:11] LABS: POTASSIUM 5.1 MMOL/L (3.6-5.0)
[2023-05-29 06:13] LABS: CALCIUM 8.7 MG/DL (8.5-10.1)
[2023-05-29 06:17] LABS: CREATININE SERUM 0.94 MG/DL (0.60-1.30)
[2023-05-29] MEDS: 1/2 NS + KCL 20 MEQ/L 1,000 ML 1,000 ML IV SCH (06:19)
[2023-05-29] MEDS: RT-ALBUTEROL SULF 2.5 MG/3 ML PRE-MIX VIAL INH SCH ×3 (07:02→22:51)
--- NOTE | 2023-05-29 07:10 | Diagnostic Imaging Report ---
INDICATION: Respiratory distress. Status post rapid response. COMPARISON: 04/24/2023 FINDINGS: Single frontal radiographic view of the chest was obtained and shows normal cardiac silhouette and pulmonary vasculature. Lungs are clear. There is no focal consolidation, large effusion, no pneumothorax. Osseous structures show no gross acute abnormalities. Included portions the upper abdomen show sub-diaphragmatic free air. Radiopaque tubing is also noted projecting over the upper abdomen. IMPRESSION: 1. No acute cardiopulmonary process. 2. Pneumoperitoneum. Correlation with recent abdominal surgery is recommended. Findings may also be seen with perforated hollow viscus. Called to Steffany at 7:06 a.m. by cvb. Dictated by: Dictated on workstation # [id number]
--- NOTE | 2023-05-29 07:51 | Anesthesia-General Post-Op ---
General Patient Condition Mental Status/LOC: Same as Preop Cardiovascular: Satisfactory Nausea/Vomiting: Absent Respiratory: Satisfactory Pain: Controlled Complications: Absent Post Op Complications Complications None Follow Up Care/Instructions Patient Instructions None needed. Anesthesia/Patient Condition Patient Condition Patient is doing well, no complaints, stable vital signs, no apparent adverse anesthesia problems. No complications reported per nursing. KYMBERLY BUNDY CRNA May 29, 2023 07:51
[2023-05-29] MEDS ORDERED: oxyCODONE/ACETAMINOPHEN 10/325MG TABLET PO PRN (09:00)
[2023-05-29] MEDS: PANTOPRAZOLE INJECTION 40 MG VIAL IV SCH (09:16)
[2023-05-29] MEDS: ceFAZolin INJECTION 2,000 MG in NS (IVPB) 50 ML 50 ML IV SCH ×2 (09:16→17:34)
[2023-05-29] MEDS: SENNA W/DOCUSATE TABLET PO SCH (09:17)
[2023-05-29] MEDS ORDERED: 1/2 NS IV SOLUTION 1000 ML 1,000 ML IV SCH (11:15)
--- NOTE | 2023-05-29 13:04 | Progress Note ---
Subjective Date Seen by a Provider: May 29, 2023 Time Seen by a Provider: 12:00 Subjective/Events-last exam patient has pain issues and oversedation similar to last admission and surgery. patient needs to take in less pain meds and increase ambulation. no bowel fxn as of yet. no fever/chills. Objective Exam Vital Signs Date Time Temp Pulse Resp B/P (MAP) Pulse Ox O2 Delivery O2 Flow Rate FiO2 05/29/23 11:28 37.0 104 16 134/74 (94) 98 Room Air 05/29/23 11:20 05/29/23 11:15 37.0 104 16 134/74 (94) 98 Room Air 05/29/23 08:00 Room Air 05/29/23 07:23 37.0 118 20 140/74 (96) 98 Room Air 05/29/23 07:02 98 Room Air 0.00 05/29/23 03:40 36.6 145 22 133/75 (94) 98 Room Air 05/29/23 01:27 36.4 120 12 97 05/29/23 00:00 36.4 109 14 159/86 (110) 95 Room Air 05/28/23 23:01 98 Room Air 05/28/23 20:49 36.7 100 18 147/81 (103) 96 Room Air 05/28/23 20:10 Room Air 05/28/23 20:05 Room Air 05/28/23 20:00 Room Air 05/28/23 20:00 20 149/89 (109) 98 Room Air 05/28/23 19:50 20 147/81 (103) 100 OxyMask 4.00 05/28/23 19:45 OxyMask 4.00 05/28/23 19:40 22 161/88 (112) 100 OxyMask 4.00 05/28/23 19:30 20 132/79 (96) 100 OxyMask 8 05/28/23 19:30 OxyMask 8 05/28/23 19:20 28 116/50 (72) 100 OxyMask 8 05/28/23 19:16 OxyMask 8 05/28/23 19:16 36.1 30 106/51 (69) 99 OxyMask 8 I & O 05/29/23 07:00 Intake Total 1150 ml Output Total 780 ml Balance 370 ml Capillary Refill : General Appearance: No Apparent Distress HEENT: PERRL/EOMI Neck: Full Range of Motion Respiratory: Chest Non Tender, Decreased Breath Sounds Cardiovascular: Regular Rate, Rhythm Gastrointestinal: soft, tenderness, other (incisions clean/dry, minimal ss SHIRA output) Neurologic/Psychiatric: Alert, Oriented x3 Skin: Normal Color Lymphatic: No Adenopathy Results Lab Laboratory Tests 05/28/23 23:41: Glucometer 167H 05/29/23 05:39: White Blood Count 20.2H, Red Blood Count 4.46, Hemoglobin 13.7, Hematocrit 39L, Mean Corpuscular Volume 87, Mean Corpuscular Hemoglobin 31, Mean Corpuscular Hemoglobin Concent 35, Red Cell Distribution Width 12.0, Platelet Count 339, Mean Platelet Volume 10.2, Sodium Level 136, Potassium Level 5.1H, Chloride Level 104, Carbon Dioxide Level 23, Anion Gap 9, Blood Urea Nitrogen 14, Creatinine 0.94, Estimat Glomerular Filtration Rate 120, BUN/Creatinine Ratio 15, Glucose Level 140H, Calcium Level 8.7 Microbiology 05/28/23 MRSA Screen - Final, Complete MRSA not isolated Assessment/Plan Assessment/Plan Assess & Plan/Chief Complaint s/p colon resection, low anterior colorectal anastomosis, reversal colostomy. start toradol. increase ambulation. consult PT. JEAN SMITH MD May 29, 2023 13:04
[2023-05-29] MEDS: KETOROLAC INJ 15 MG/ML VIAL IVP SCH ×2 (13:30→19:15)
--- NOTE | 2023-05-29 14:22 | Physical Therapy Evaluation ---
PT Evaluation-General Medical Diagnosis Admission Date May 28, 2023 at 09:57 Medical Diagnosis: Laparscopic colon resection Onset Date: May 28, 2023 Therapy Diagnosis Therapy Diagnosis: Gait deficit, strength deficit Precautions Precautions/Isolations: Fall Prevention, Standard Precautions Weight Bear Status Right Lower Extremity: Right Full Weight Bearing Left Lower Extremity: Left Full Weight Bearing Referral Physician: Dr. Chadwick Reason for Referral: Evaluation/Treatment Medical History Reviewed History: Yes Social History Home: Single Level Current Living Status: Other Family Entry Into Home: Stairs With Railing PT Steps Into Home: 3 Prior Prior Level of Function SCALE: Activities may be completed with or without assistive devices. 1-Mcpiolblpm-rfrfiip completes the activity by him/herself with no assistance from a helper. 5-Set-up or Clean-up Assistance-helper sets up or cleans up; patient completes activity. [place] assists only prior to or following the activity. 4-Supervision or Touching Assistance-helper provides verbal cues and/or touching/steadying and/or contact guard assistance as patient completes activity. Assistance may be provided throughout the activity or intermittently. 3-Partial/Moderate Assistance-helper does LESS THAN HALF the effort. [place] lifts, holds or supports trunk or limbs, but provides less than half the effort. 2-Substantial/Maximal Assistance-helper does MORE THAN HALF the effort. [place] lifts or holds trunk or limbs and provides more than half the effort. 8-Tntdxixgo-qazlla does ALL the effort. Patient does none of the effort to complete the activity. Or, the assistance of 2 or more helpers is required for the patient to complete the activity. If activity was not attempted, code reason: 7-Patient Refused. 9-Not Applicable-not attempted and the patient did not perform the activity before the current illness, exacerbation or injury. 10-Not Attempted due to Environmental Limitations-(lack of equipment, weather restraints, etc.). 88-Not Attempted due to Medical Conditions or Safety Concerns. Bed Mobility: 6 Transfers (B,C,W/C): 6 Gait: 6 Stairs: 6 Indoor Mobility (Ambulation): Independent Stairs: Independent PT Evaluation-Current Subjective Patient lying supine in bed upon arrival, agreeable to treatment. Patient rates pain at 3/10 currently in the abdomen. Patient speaks only minimal Yi, Aunt translates what he is unable to verbalize. Patient initially does not want to mobilize due to pain. Objective Patient Orientation: Person ROM/Strength ROM Lower Extremities WFLs BLEs all planes Strength Lower Extremities 3+/5 BLEs via visual observation. Not officially assessed due to pain. Sensory Vision: Functional Hearing: Functional Sensation Right Lower Extremit: Intact Sensation Left Lower Extremity: Intact Transfers Roll Left to Right (QC): 3 Sit to Lying (QC): 3 Lying to Sitting/Side of Bed(Q: 3 Sit to Stand (QC): 4 Chair/Xde-bc-Wruvn Xfer(QC): 4 Gait Does the Patient Walk?: Yes Mode of Locomotion: Walk Anticipated Mode of Locomotion: Walk Walk 10 feet (QC): 4 Distance: 100' Gait Assistive Device: FWW Balance Sitting Static: Fair Sitting Dynamic: Fair Standing Static: Poor Standing Dynamic: Poor Assessment/Needs Patient tolerated treatment fair. Patient resistive to treatment due to pain. Patient performs bed mobility and transfers with min/CGA. Patient ambulates 100 feet with FWW for postural support and verbal cues for safety, progression, posture and use of FWW. Patient in chair post treatment with family in the room, all needs met, call light in hand. Rehab Potential: Fair PT [facility] Goals Dairy Technician Goals PT Dairy Technician Goals Time Frame: Jun 04, 2023 Roll Left & Right (QC): 6 Sit to Lying (QC): 6 Lying-Sitting on Side/Bed(QC): 6 Sit to Stand (QC): 6 Chair/Syn-xb-Xxxot Xfer(QC): 6 Toilet Transfer (QC): 6 Does the Patient Walk: Yes Walk 10 feet (QC): 6 Walk 50ft with 2 Turns (QC): 6 Walk 150 ft (QC): 6 Walking 10ft on Uneven Surface: 6 1 Step (curb) (QC): 6 4 Steps (QC): 6 PT Plan Problem List Problem List: Activity Tolerance, Functional Strength, Safety, Balance, Gait, Transfer, Bed Mobility, ROM Treatment/Plan Treatment Plan: Continue Plan of Care Treatment Plan: Bed Mobility, Education, Functional Activity Raffy, Functional Strength, Group Therapy, Gait, Safety, Therapeutic Exercise, Transfers Treatment Duration: Jul 04, 2023 Frequency: 6 times per week Estimated Hrs Per Day: .25 hour per day Patient and/or Family Agrees t: Yes Safety Risks/Education Patient Education: Gait Training, Transfer Techniques Teaching Recipient: Patient, Family Teaching Methods: Demonstration, Discussion Response to Teaching: Reinforcement Needed Time Time In: 1349 Time Out: 1406 DATE: May 29, 2023 Total Billed Treatment Time: 17 Total Billed Treatment Visit, HAI RODRIGUEZ PT May 29, 2023 14:22
[2023-05-29 18:12] LABS: HEMOGLOBIN 10.7 g/dL (13.3-17.7)
[2023-05-29] MEDS ORDERED: NS IV 1000 ML 1,000 ML IV SCH (19:00)
[2023-05-29] MEDS ORDERED: NS IV 1000 ML 1,000 ML ONE (19:12)
[2023-05-29] MEDS ORDERED: NS IV 500 ML 500 ML IV SCH ×2 (19:15)
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
[2023-05-29] MEDS ORDERED: fentaNYL INJECTION 100 MCG/2 ML VIAL ONE ×2 (19:18→20:32)
[2023-05-29 19:19] LABS: HEMATOCRIT 30 % (40-54); HEMOGLOBIN 10.5 g/dL (13.3-17.7); MEAN CORPUSCULAR HEMOGLOBIN 30 pg (25-34); MEAN CORPUSCULAR HGB CONC 35 g/dL (32-36); MEAN CORPUSCULAR VOLUME 88 fL (80-99); MEAN PLATELET VOLUME 10.1 fL (9.0-12.2); PLATELET COUNT 227 10^3/uL (130-400); WHITE BLOOD COUNT 14.6 10^3/uL (4.3-11.0)
[2023-05-29] MEDS: fentaNYL INJECTION 100 MCG/2 ML VIAL IVP PRN (19:20)
[2023-05-29 19:49] LABS: ABG BASE EXCESS 1.9 MMOL/L (-2.5-2.5); ABG OXYGEN SATURATION 101 % (94-100); ABG PCO2 42 MMHG (35-45); ABG PH 7.41 (7.37-7.43); ABG PO2 191 MMHG (79-93); ABG TCO2 27.5 MMOL/L (21.0-31.0); VENTILATOR NO
[2023-05-29 19:50] LABS: PATIENT TEMP 36.3
[2023-05-29 19:57] LABS: ALBUMIN 3.4 GM/DL (3.2-4.5); BILIRUBIN,TOTAL 0.7 MG/DL (0.1-1.0); CREATININE SERUM 0.85 MG/DL (0.60-1.30); POTASSIUM 3.9 MMOL/L (3.6-5.0); TOTAL PROTEIN 5.5 GM/DL (6.4-8.2)
[2023-05-29 20:00] LABS: INR 1.2 (0.8-1.4); PROTHROMBIN TIME PATIENT 15.1 SEC (12.2-14.7)
[2023-05-29 20:04] LABS: FIBRIN DEGRADATION PRODUCTS 1.86 UG/ML (0.00-0.49)
--- NOTE | 2023-05-29 20:07 | Diagnostic Imaging Report ---
CHEST 1 VIEW, AP/PA ONLY Indication: Chest pain, postoperative Comparison: Earlier same day at 12:01 AM Findings: Free air under the diaphragm is again noted and compatible with recent surgery. Lungs are clear. No pleural effusion or pneumothorax. Normal heart size. Impression: 1. Pneumoperitoneum is unchanged. 2. No acute cardiopulmonary process. Dictated by: Dictated on workstation # [id number]
--- NOTE | 2023-05-29 20:10 | Diagnostic Imaging Report ---
ABDOMEN/KUB 1VIEW INDICATION: Postoperative abdominal pain COMPARISON: None available. TECHNIQUE: Supine AP view of the abdomen FINDINGS: Surgical drain is present in the right lower quadrant. There are gas-filled but nondilated loops of bowel. No unintended radiopaque foreign body. A small amount of free intraperitoneal air is noted. IMPRESSION: 1. Free intraperitoneal air is compatible with recent surgery. 2. Nonobstructed bowel gas pattern. Dictated by: Dictated on workstation # [id number]
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
--- NOTE | 2023-05-29 20:20 | Progress Note-Pre Operative ---
Pre-Operative Progress Note Date of Available H&P: May 29, 2023 Date H&P Reviewed: May 29, 2023 Time H&P Reviewed: 20:00 History & Physical: H&P Reviewed, Patient Examed, No changes noted Pre-Operative Diagnosis: increased abd pain and SHIRA blood drainage s/p LAR/ reversal colostomy JEAN SMITH MD May 29, 2023 20:20
--- NOTE | 2023-05-29 20:21 | Progress Note-Post Operative ---
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 anastomosis intact. Procedure & Operative Findings Date of Procedure 05/29/23 Procedure Performed/Findings diagnostic laparoscopy, intraperitoneal hemostasis, left subclavian central line. Anesthesia Type get Estimated Blood Loss Estimated blood loss (mL): 100ml Specimens/Packing Specimens Removed none JEAN SMITH MD May 29, 2023 20:21
[2023-05-29] MEDS ORDERED: dexAMETHasone INJ 10 MG/ML 1 ML VIAL ONE (20:32)
[2023-05-29] MEDS ORDERED: proPOfol INJECTION 200 MG/20 ML VIAL IV ONE (20:32)
[2023-05-29] MEDS ORDERED: LIDOCAINE PF 2% 5 ML VIAL ONE (20:32)
[2023-05-29] MEDS ORDERED: MIDAZOLAM INJ 2 MG/2 ML VIAL ONE (20:32)
[2023-05-29] MEDS ORDERED: ONDANSETRON INJECTION 4 MG/2 ML (SDV) ONE (20:32)
[2023-05-29] MEDS ORDERED: SEVOFLURANE (ULTANE) 15 ML INHAL SOLN ONE ×2 (20:32→22:06)
[2023-05-29] MEDS: NS IV 1000 ML 1,000 ML IV PRN ×2 (20:54→21:30)
[2023-05-29] MEDS ORDERED: LIDOCAINE 1% w/EPI 1:100,000 20 ML VIAL ONE (20:54)
[2023-05-29] MEDS ORDERED: ceFAZolin INJECTION 2,000 MG ONE (21:06)
[2023-05-29] MEDS ORDERED: NS (IVPB) 50 ML 50 ML ONE (21:06)
[2023-05-29] MEDS ORDERED: ceFAZolin INJECTION 2,000 MG in NS (IVPB) 50 ML 50 ML IV ONE (21:08)
[2023-05-29] MEDS ORDERED: ROCURONIUM 50 MG/5 ML VIAL IV ONE (21:20)
[2023-05-29] MEDS ORDERED: LIDOCAINE 1% w/EPI 1:100,000 20 ML VIAL INJ ONE (21:42)
[2023-05-29] MEDS ORDERED: HYDROmorphone INJECTION 2 MG/ML VIAL ONE ×2 (21:54→23:03)
[2023-05-29] MEDS ORDERED: SUGAMMADEX 500 MG/5 ML VIAL (BRIDION) IV ONE (22:04)
[2023-05-29] MEDS ORDERED: MEPERIDINE INJ 50 MG/ML VIAL ONE (22:17)
[2023-05-29] MEDS ORDERED: MEPERIDINE INJ 50 MG/ML VIAL IVP ONE (22:45)
[2023-05-29] MEDS ORDERED: HYDROmorphone INJECTION 2 MG/ML VIAL IV ONE (22:45)
[2023-05-29] MEDS ORDERED: ONDANSETRON INJECTION 4 MG/2 ML (SDV) IVP PRN (22:45)
[2023-05-29] MEDS: cefTRIAXone INJECTION 2,000 MG in NS (IVPB) 50 ML 50 ML IV SCH (23:43)
[2023-05-30] MEDS: LACTATED RINGERS 1,000 ML 1,000 ML IV SCH ×3 (00:19→15:41)
[2023-05-30] MEDS: KETOROLAC INJ 15 MG/ML VIAL IVP SCH ×2 (01:54→07:56)
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
[2023-05-30 04:43] LABS: HEMATOCRIT 24 % (40-54); HEMOGLOBIN 8.2 g/dL (13.3-17.7); MEAN CORPUSCULAR HEMOGLOBIN 30 pg (25-34); MEAN CORPUSCULAR HGB CONC 34 g/dL (32-36); MEAN CORPUSCULAR VOLUME 90 fL (80-99); PLATELET COUNT 179 10^3/uL (130-400); WHITE BLOOD COUNT 10.6 10^3/uL (4.3-11.0)
[2023-05-30 04:54] LABS: POTASSIUM 3.9 MMOL/L (3.6-5.0)
[2023-05-30 04:55] LABS: CALCIUM 7.6 MG/DL (8.5-10.1)
[2023-05-30 04:59] LABS: CREATININE SERUM 0.76 MG/DL (0.60-1.30)
[2023-05-30] MEDS ORDERED: NS IV 500 ML 500 ML IV PRN (05:15)
[2023-05-30] MEDS: POTASSIUM CHLORIDE 20 MEQ TABLET PO SCH (05:24)
[2023-05-30] MEDS: POTASSIUM CL 10MEQ/50ML IVPB 50 ML IV SCH ×2 (05:24→05:57)
[2023-05-30] MEDS: MAGNESIUM 1 GM/100 ML IVPB 100 ML IV SCH ×3 (05:24→07:34)
[2023-05-30] MEDS ORDERED: POTASSIUM CL 10MEQ/50ML IVPB 100 ML IV ONE (05:40)
[2023-05-30] MEDS ORDERED: MAGNESIUM 1 GM/100 ML IVPB 400 ML IV ONE (05:40)
[2023-05-30] MEDS: fentaNYL INJECTION 100 MCG/2 ML VIAL IVP PRN (06:21)
[2023-05-30] MEDS ORDERED: fentaNYL INJECTION 100 MCG/2 ML VIAL ONE (06:59)
[2023-05-30] MEDS ORDERED: fentaNYL INJECTION 100 MCG/2 ML VIAL IVP ONE (07:00)
[2023-05-30] MEDS: RT-ALBUTEROL SULF 2.5 MG/3 ML PRE-MIX VIAL INH SCH (07:35)
[2023-05-30] MEDS: PANTOPRAZOLE INJECTION 40 MG VIAL IV SCH (07:55)
[2023-05-30] MEDS: SENNA W/DOCUSATE TABLET PO SCH (07:56)
--- NOTE | 2023-05-30 08:22 | Diagnostic Imaging Report ---
EXAMINATION: Chest radiograph, portable AP view. DATE: May 29, 2023. INDICATION: 17-year-old male, central line placement. COMPARISON: May 29, 2023 at 2000 hours. FINDINGS: The left-sided central venous line overlies the upper SVC. Heart size and mediastinal contours are unchanged. There is no identified pneumothorax. There is no large pleural effusion. There is no identified focal airspace consolidation. There are gas-filled segments of bowel. The previously noted free intraperitoneal air is not as well appreciated on the current exam. IMPRESSION: 1. Newly placed left-sided central venous line overlying the upper SVC. 2. No identified acute cardiopulmonary abnormality. 3. Previously noted free intraperitoneal air is not as well apparent on the current exam. Dictated by: Dictated on workstation # [id number]
--- NOTE | 2023-05-30 08:27 | Diagnostic Imaging Report ---
EXAMINATION: Chest radiograph, portable AP view. DATE: 05/30/2023 8:24 AM INDICATION: 17-year-old male, shortness of breath. COMPARISON: May 29, 2023. FINDINGS: There is a left-sided central venous line with tip overlying the upper SVC. Heart size and mediastinal contours are unchanged. There is no identified pneumothorax. There is no large pleural effusion. There is no identified focal airspace consolidation. IMPRESSION: 1. No identified acute cardiopulmonary abnormality. 2. Stable positioning of left-sided central venous line. Dictated by: Dictated on workstation # [id number]
--- NOTE | 2023-05-30 08:29 | Diagnostic Imaging Report ---
EXAMINATION: Abdominal radiographs, single view. DATE: May 30, 2023. CLINICAL INDICATION: 17-year-old male, abdominal pain. Status post surgery. COMPARISON: May 29, 2023 radiographs. COMMENTS: There is a drainage catheter overlying the pelvis. There are skin angie noted. There are abnormally dilated segments of small bowel measuring up to approximately 5.2 cm in diameter. There are gas-filled segments of large bowel. There are sutures overlying the pelvis. There is no identified pneumatosis or portal venous gas. There is no sizable volume free intraperitoneal air on supine assessment. There are also sutures overlying the right lower quadrant. IMPRESSION: 1. Gas distended segments of small bowel measuring up to 5.2 cm in size which may reflect ileus. Small bowel obstruction is also a differential consideration. Dictated by: Dictated on workstation # [id number]
[2023-05-30] MEDS: METHYLNALTREXONE 12 MG/0.6 ML VIAL SQ SCH (09:05)
[2023-05-30] MEDS: morphine INJ 4 MG/ML 1 ML (VIAL/SYRINGE) IVP PRN ×3 (09:05→18:00)
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
--- NOTE | 2023-05-30 10:03 | Anesthesia-General Post-Op ---
General Patient Condition Mental Status/LOC: Same as Preop Cardiovascular: Satisfactory Nausea/Vomiting: Absent Respiratory: Satisfactory Pain: Controlled Complications: Absent Post Op Complications Complications None Follow Up Care/Instructions Patient Instructions None needed. Anesthesia/Patient Condition Patient Condition Patient is doing well, C/O pain which is unfortunately to be expected, stable vital signs, no apparent adverse anesthesia problems. No complications reported per nursing. TERRY REYES DO May 30, 2023 10:03
[2023-05-30] MEDS: metroNIDAZOLE 500MG/100ML IVPB 100 ML IV SCH ×2 (11:02→21:05)
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
--- NOTE | 2023-05-30 12:06 | Progress Note ---
Subjective Date Seen by a Provider: May 30, 2023 Time Seen by a Provider: 11:45 Subjective/Events-last exam Patient seen with Dr. Chadwick. Patient lying in bed with Aunt at bedside. Patient complains of abdominal pain but no other complaints. No BM or flatus. Aunt reports that he did rest this morning for awhile after some morphine and his pain restarts after he moves. Focused Exam Lactate Level 05/29/23 19:30: Lactic Acid Level 1.00 Objective Exam Vital Signs Date Time Temp Pulse Resp B/P (MAP) Pulse Ox O2 Delivery O2 Flow Rate FiO2 05/30/23 11:00 118 119/65 (81) 95 OxyMask 2.00 05/30/23 10:00 117 117/64 (81) 95 OxyMask 2.00 05/30/23 09:00 117 127/62 (81) 95 OxyMask 2.00 05/30/23 08:00 120 130/75 (88) 96 OxyMask 2.00 05/30/23 07:43 100 Room Air 0.00 05/30/23 07:41 37.0 05/30/23 07:28 98 Room Air 05/30/23 07:00 115 05/30/23 07:00 112 127/68 (86) 92 OxyMask 2.00 05/30/23 06:00 107 113/56 (75) 94 OxyMask 2.00 05/30/23 05:00 102 112/53 (72) 98 OxyMask 2.00 05/30/23 04:00 99 OxyMask 2.00 05/30/23 04:00 109 105/53 (70) 97 OxyMask 2.00 05/30/23 04:00 36.8 05/30/23 03:00 112 106/51 (69) 97 OxyMask 2.00 05/30/23 02:00 113 111/56 (74) 99 OxyMask 2.00 05/30/23 01:00 128 110/50 (70) 99 OxyMask 2.00 05/30/23 01:00 126 05/30/23 00:00 130 112/50 (70) 98 OxyMask 2.00 05/30/23 00:00 36.8 05/30/23 00:00 98 OxyMask 2.00 05/29/23 23:30 OxyMask 2.00 05/29/23 23:20 36.7 20 118/68 (85) 95 OxyMask 2.00 05/29/23 23:10 OxyMask 2.00 05/29/23 23:10 20 124/61 (82) 97 OxyMask 2.00 05/29/23 23:00 20 120/71 (87) 98 OxyMask 4.00 05/29/23 23:00 124 124/61 (82) 97 OxyMask 2.00 05/29/23 22:55 OxyMask 4.00 05/29/23 22:50 20 126/64 (84) 97 OxyMask 6.00 05/29/23 22:40 OxyMask 6.00 05/29/23 22:40 20 125/67 (86) 96 OxyMask 8.00 05/29/23 22:30 20 124/59 (80) 98 OxyMask 8.00 05/29/23 22:22 36.9 20 127/59 (81) 97 OxyMask 8.00 05/29/23 22:22 OxyMask 8.00 05/29/23 22:00 128 124/59 (80) 98 OxyMask 2.00 05/29/23 20:45 107 138/75 (96) 100 OxyMask 2.00 05/29/23 20:15 103 138/84 (102) 96 OxyMask 2.00 05/29/23 20:00 OxyMask 05/29/23 20:00 37.2 05/29/23 19:45 105 149/91 (110) 98 OxyMask 2.00 05/29/23 19:30 112 138/77 (97) 98 OxyMask 2.00 05/29/23 19:15 101 138/77 (97) 99 OxyMask 2.00 05/29/23 19:00 110 05/29/23 19:00 98 139/79 (99) 100 OxyMask 2.00 05/29/23 18:31 36.6 132 10 99 05/29/23 17:50 37.7 107 28 131/76 (94) 99 Room Air 05/29/23 15:26 36.5 118 18 143/73 (96) 96 Room Air 05/29/23 15:02 97 Room Air 0.00 I & O 05/30/23 07:00 Intake Total 3250 ml Output Total 1335 ml Balance 1915 ml Capillary Refill : General Appearance: No Apparent Distress, WD/WN Neck: Normal Inspection, Supple Respiratory: No Accessory Muscle Use, No Respiratory Distress Gastrointestinal: guarding, tenderness, other (SHIRA drain with watery bloody drainage, turning SS. Abdominal incisions C/D/I) Extremity: Normal Inspection, Normal Range of Motion Neurologic/Psychiatric: Alert, Normal Mood/Affect Skin: Normal Color, Warm/Dry Results Lab Laboratory Tests 05/29/23 18:03: Hemoglobin 10.7#L, Hematocrit 31L 05/29/23 18:34: Glucometer 116H 05/29/23 19:06: Hemoglobin 10.5L, Hematocrit 30L, White Blood Count 14.6H, Red Blood Count 3.46L , Mean Corpuscular Volume 88, Mean Corpuscular Hemoglobin 30, Mean Corpuscular Hemoglobin Concent 35, Red Cell Distribution Width 12.3, Platelet Count 227, Mean Platelet Volume 10.1, Prothrombin Time 15.1H, INR Comment 1.2, Activated Partial Thromboplast Time 31, Fibrinogen 332, D-Dimer 1.86H 05/29/23 19:08: Blood Gas Puncture Site N/A, Blood Gas Patient Temperature 36.3, Arterial Blood pH 7.41, Arterial Blood Partial Pressure CO2 42, Arterial Blood Partial Pressure O2 191H, Arterial Blood HCO3 26, Arterial Blood Total CO2 27.5, Arterial Blood Oxygen Saturation 101H, Arterial Blood Base Excess 1.9, Gareth Test N/A, Blood Gas Ventilator Setting NO, Blood Gas Inspired Oxygen N/A 05/29/23 19:30: Venous Blood pH 7.51H, Venous Blood Partial Pressure CO2 30L, Venous Blood HCO3 23, Sodium Level 137, Potassium Level 3.9, Chloride Level 105, Carbon Dioxide Level 24, Anion Gap 8, Blood Urea Nitrogen 12, Creatinine 0.85, Estimat Glomerular Filtration Rate 128, BUN/Creatinine Ratio 14, Glucose Level 110H, Lactic Acid Level 1.00, Calcium Level 8.0L, Corrected Calcium 8.5, Total Bilirubin 0.7, Aspartate Amino Transf (AST/SGOT) 17, Alanine Aminotransferase (ALT/SGPT) 33, Alkaline Phosphatase 59, Total Protein 5.5L, Albumin 3.4 05/30/23 04:37: Sodium Level 137, Potassium Level 3.9, Chloride Level 106, Carbon Dioxide Level 24, Anion Gap 7, Blood Urea Nitrogen 8, Creatinine 0.76, Estimat Glomerular Filtration Rate 133, BUN/Creatinine Ratio 11, Glucose Level 104, Calcium Level 7.6L, White Blood Count 10.6, Red Blood Count 2.70L, Hemoglobin 8.2#L, Hematocrit 24L, Mean Corpuscular Volume 90, Mean Corpuscular Hemoglobin 30, Mean Corpuscular Hemoglobin Concent 34, Red Cell Distribution Width 12.5, Platelet Count 179, Mean Platelet Volume 10.0, Magnesium Level 1.7 Microbiology 05/28/23 MRSA Screen - Final, Complete MRSA not isolated Assessment/Plan Assessment/Plan Assess & Plan/Chief Complaint A 17 year old male with history of perforated sigmoid colon and colostomy placement, now S/P laparoscopic colostomy reversal VSS WBC 10.6 Hgb 8.2 Will change percocet to 7.5 mg, Start IBU 800 every 8 hours Continue with pain and nausea meds IV abx IS and ambulation JOSE ELIAS SHETH APRN May 30, 2023 12:06
[2023-05-30] MEDS: ACETAMINOPHEN PO PRN ×3 (12:44→23:34)
[2023-05-30] MEDS: OXYCODONE PO PRN ×3 (12:44→23:34)
[2023-05-30] MEDS: IBUPROFEN 800 MG TABLET PO SCH ×3 (12:44→23:34)
--- NOTE | 2023-05-30 12:53 | Physical Therapy Progress Note ---
Therapy Progress Note Patient transferred to higher level of care to ICU so we will await new orders. VARINDER REYES PT May 30, 2023 12:53
[2023-05-30 14:10] LABS: HEMOGLOBIN 8.8 g/dL (13.3-17.7)
[2023-05-30] MEDS: cefTRIAXone INJECTION 2,000 MG in NS (IVPB) 50 ML 50 ML IV SCH (19:57)
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
[2023-05-31] MEDS: LACTATED RINGERS 1,000 ML 1,000 ML IV SCH ×4 (00:34→23:49)
[2023-05-31] MEDS: morphine INJ 4 MG/ML 1 ML (VIAL/SYRINGE) IVP PRN ×6 (01:12→20:20)
[2023-05-31] MEDS: fentaNYL INJECTION 100 MCG/2 ML VIAL IVP PRN (02:08)
[2023-05-31 03:23] LABS: HEMATOCRIT 25 % (40-54); HEMOGLOBIN 8.7 g/dL (13.3-17.7); MEAN CORPUSCULAR HEMOGLOBIN 31 pg (25-34); MEAN CORPUSCULAR HGB CONC 34 g/dL (32-36); MEAN CORPUSCULAR VOLUME 89 fL (80-99); MEAN PLATELET VOLUME 9.8 fL (9.0-12.2); PLATELET COUNT 167 10^3/uL (130-400); WHITE BLOOD COUNT 17.1 10^3/uL (4.3-11.0)
[2023-05-31 03:34] LABS: ALBUMIN 2.8 GM/DL (3.2-4.5); POTASSIUM 3.6 MMOL/L (3.6-5.0)
[2023-05-31 03:35] LABS: CALCIUM 7.9 MG/DL (8.5-10.1)
[2023-05-31 03:36] LABS: TOTAL PROTEIN 5.1 GM/DL (6.4-8.2)
[2023-05-31 03:38] LABS: BILIRUBIN,TOTAL 0.7 MG/DL (0.1-1.0)
[2023-05-31 03:40] LABS: CREATININE SERUM 0.65 MG/DL (0.60-1.30)
[2023-05-31] MEDS: POTASSIUM CL 10MEQ/50ML IVPB 50 ML IV SCH ×4 (04:03→05:27)
[2023-05-31] MEDS: ONDANSETRON INJECTION 4 MG/2 ML (SDV) IV PRN ×2 (05:14→14:19)
[2023-05-31] MEDS: POTASSIUM CHLORIDE 20 MEQ TABLET PO SCH (05:27)
[2023-05-31] MEDS: MAGNESIUM 1 GM/100 ML IVPB 100 ML IV SCH (05:27)
[2023-05-31] MEDS: IBUPROFEN 800 MG TABLET PO SCH ×4 (06:08→23:49)
[2023-05-31] MEDS: OXYCODONE PO PRN ×3 (06:08→18:51)
[2023-05-31] MEDS: ACETAMINOPHEN PO PRN ×3 (06:08→18:51)
[2023-05-31] MEDS: SENNA W/DOCUSATE TABLET PO SCH (08:09)
[2023-05-31] MEDS: PANTOPRAZOLE INJECTION 40 MG VIAL IV SCH (08:09)
[2023-05-31] MEDS: METOCLOPRAMIDE INJ 10 MG/2 ML IVP PRN ×2 (08:18→20:26)
[2023-05-31] MEDS: metroNIDAZOLE 500MG/100ML IVPB 100 ML IV SCH ×2 (10:03→20:20)
--- NOTE | 2023-05-31 10:50 | Progress Note ---
Subjective Date Seen by a Provider: May 31, 2023 Time Seen by a Provider: 10:40 Subjective/Events-last exam Patient seen with Dr. Chadwick. Patient lying in bed resting quietly. Family at bedside. RN reports an episode of emesis this morning. Patient denies any flatus, still complaining of abdominal pain. Focused Exam Lactate Level 05/29/23 19:30: Lactic Acid Level 1.00 Objective Exam Vital Signs Date Time Temp Pulse Resp B/P (MAP) Pulse Ox O2 Delivery O2 Flow Rate FiO2 05/31/23 10:00 112 114/67 (83) 95 Room Air 05/31/23 09:00 120 116/62 (80) 95 Room Air 05/31/23 08:10 93 Room Air 05/31/23 08:00 114 124/86 (106) 92 Room Air 05/31/23 08:00 36.7 05/31/23 07:00 118 126/69 (86) 90 Room Air 05/31/23 07:00 112 05/31/23 06:00 118 126/72 (90) 90 Room Air 05/31/23 05:00 122 120/64 (82) 90 Room Air 05/31/23 04:13 37.0 05/31/23 04:00 126 117/62 (80) 94 Room Air 05/31/23 04:00 93 Room Air 05/31/23 03:00 122 116/73 (87) 88 Room Air 05/31/23 02:00 123 118/69 (85) 89 Room Air 05/31/23 01:08 124 05/31/23 01:00 115 120/70 (87) 91 Room Air 05/31/23 00:00 126 112/62 (79) 91 OxyMask 2.00 05/31/23 00:00 37.2 Room Air 05/30/23 23:59 93 Room Air 05/30/23 23:00 138 110/67 (81) 92 OxyMask 2.00 05/30/23 22:00 129 111/58 (75) 92 OxyMask 2.00 05/30/23 21:00 130 111/62 (78) 90 OxyMask 2.00 05/30/23 20:00 133 111/59 (76) 90 OxyMask 2.00 05/30/23 20:00 93 Room Air 05/30/23 19:38 38.6 05/30/23 19:00 136 05/30/23 19:00 138 109/55 (73) 89 OxyMask 2.00 05/30/23 17:00 141 122/70 (90) 92 OxyMask 2.00 05/30/23 16:10 93 Room Air 05/30/23 16:00 135 112/59 (76) 91 OxyMask 2.00 05/30/23 15:28 38.0 05/30/23 15:00 128 112/64 (79) 92 OxyMask 2.00 05/30/23 14:00 125 118/66 (82) 99 OxyMask 2.00 05/30/23 13:00 134 118/67 (83) 100 OxyMask 2.00 05/30/23 12:17 127 05/30/23 12:00 93 Room Air 05/30/23 12:00 124 129/73 (92) 99 OxyMask 2.00 05/30/23 12:00 38.0 05/30/23 11:00 118 119/65 (81) 95 OxyMask 2.00 I & O0 05/31/23 07:00 Intake Total 2700 ml Output Total 2380 ml Balance 320 ml Capillary Refill : General Appearance: No Apparent Distress, WD/WN Neck: Normal Inspection, Supple Respiratory: No Accessory Muscle Use, No Respiratory Distress Gastrointestinal: tenderness, other (SHIRA drain with minimal SS drainage. Abdominal incision C/D/I with dressing in place to previous colostomy site, bandaids over lap incisions) Extremity: Normal Inspection, Normal Range of Motion Neurologic/Psychiatric: Alert, Normal Mood/Affect Skin: Normal Color, Warm/Dry Results Lab Laboratory Tests 05/30/23 14:05: Hemoglobin 8.8L, Hematocrit 26L 05/31/23 03:15: Hemoglobin 8.7L, Hematocrit 25L, White Blood Count 17.1H, Red Blood Count 2.85L, Mean Corpuscular Volume 89, Mean Corpuscular Hemoglobin 31, Mean Corpuscular Hemoglobin Concent 34, Red Cell Distribution Width 12.0, Platelet Count 167, Mean Platelet Volume 9.8, Sodium Level 134L, Potassium Level 3.6, Chloride Level 101, Carbon Dioxide Level 24, Anion Gap 9, Blood Urea Nitrogen 6L, Creatinine 0.65, Estimat Glomerular Filtration Rate 139, BUN/Creatinine Ratio 9, Glucose Level 94, Calcium Level 7.9L, Corrected Calcium 8.9, Total Bilirubin 0.7, Aspartate Amino Transf (AST/SGOT) 14, Alanine Aminotransferase (ALT/SGPT) 17, Alkaline Phosphatase 49, Total Protein 5.1L, Albumin 2.8L Microbiology 05/29/23 Blood Culture - Preliminary, Resulted No growth 05/28/23 MRSA Screen - Final, Complete MRSA not isolated Assessment/Plan Assessment/Plan Assess & Plan/Chief Complaint A 17 year old male with history of perforated sigmoid colon and colostomy placement, now S/P laparoscopic colostomy reversal VSS WBC 17.1 Hgb 8.7 Continue with pain and nausea meds IV abx - will change rocephin to levaquin IS and ambulation Ok to transfer to 4th floor JOSE ELIAS SHETH APRN May 31, 2023 10:50
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
[2023-05-31 16:00] VITALS: BP 133/70
[2023-05-31 19:47] VITALS: BP 134/77
[2023-05-31 20:57] VITALS: BP 133/76
[2023-06-01] VITALS (8 sets, daily range): BP systolic 131–147; BP diastolic 72–89
[2023-06-01] MEDS: ACETAMINOPHEN PO PRN ×2 (04:21→08:38)
[2023-06-01] MEDS: OXYCODONE PO PRN ×2 (04:21→08:38)
[2023-06-01 04:30] LABS: BASOPHILS % (AUTO) 0 % (0-10); EOSINOPHILS # (AUTO) 0.1 10^3/uL (0.0-0.3); EOSINOPHILS % (AUTO) 1 % (0-10); HEMATOCRIT 24 % (40-54); LYMPHOCYTES # (AUTO) 1.7 10^3/uL (1.0-4.0); LYMPHOCYTES % (AUTO) 11 % (12-44); MEAN CORPUSCULAR HEMOGLOBIN 30 pg (25-34); MEAN CORPUSCULAR HGB CONC 34 g/dL (32-36); MEAN CORPUSCULAR VOLUME 89 fL (80-99); MONOCYTES % (AUTO) 7 % (0-12); NEUTROPHILS # (AUTO) 12.4 10^3/uL (1.8-7.8); NEUTROPHILS % (AUTO) 81 % (42-75); PLATELET COUNT 177 10^3/uL (130-400); WHITE BLOOD COUNT 15.3 10^3/uL (4.3-11.0)
[2023-06-01 04:40] LABS: ALBUMIN 2.7 GM/DL (3.2-4.5)
[2023-06-01 04:41] LABS: POTASSIUM 3.6 MMOL/L (3.6-5.0)
[2023-06-01 04:42] LABS: CALCIUM 8.1 MG/DL (8.5-10.1)
[2023-06-01 04:43] LABS: TOTAL PROTEIN 5.2 GM/DL (6.4-8.2)
[2023-06-01 04:45] LABS: BILIRUBIN,TOTAL 0.6 MG/DL (0.1-1.0)
[2023-06-01 04:47] LABS: CREATININE SERUM 0.61 MG/DL (0.60-1.30)
[2023-06-01 04:49] LABS: LYMPHOCYTES % (MANUAL) 13 %; MONOCYTES % (MANUAL) 6 %; NEUTROPHILS % (MANUAL) 81 %
[2023-06-01] MEDS: IBUPROFEN 800 MG TABLET PO SCH (06:04)
[2023-06-01] MEDS: MAGNESIUM 1 GM/100 ML IVPB 100 ML IV SCH (06:17)
[2023-06-01] MEDS: POTASSIUM CHLORIDE 20 MEQ TABLET PO SCH (06:17)
[2023-06-01] MEDS: POTASSIUM CL 10MEQ/50ML IVPB 50 ML IV SCH (06:17)
--- NOTE | 2023-06-01 07:47 | Physical Therapy Progress Note ---
Therapy Progress Note PT will require new orders due to events over the weekend and transfer to ICU then back to [address] [place] [address]. COLE WINKLER PT Jun 01, 2023 07:47
[2023-06-01] MEDS ORDERED: POTASSIUM CHLORIDE 20 MEQ TABLET PO ONE (08:00)
[2023-06-01] MEDS: PANTOPRAZOLE INJECTION 40 MG VIAL IV SCH (08:38)
[2023-06-01] MEDS: METHYLNALTREXONE 12 MG/0.6 ML VIAL SQ SCH (08:38)
[2023-06-01] MEDS: SENNA W/DOCUSATE TABLET PO SCH (08:39)
[2023-06-01] MEDS: LACTATED RINGERS 1,000 ML 1,000 ML IV SCH ×3 (08:41→19:00)
[2023-06-01] MEDS: ONDANSETRON INJECTION 4 MG/2 ML (SDV) IV PRN ×2 (09:21→20:43)
[2023-06-01] MEDS: metroNIDAZOLE 500MG/100ML IVPB 100 ML IV SCH ×2 (10:00→21:56)
[2023-06-01 11:25] LABS: HEMATOCRIT 24 % (40-54); HEMOGLOBIN 8.2 g/dL (13.3-17.7); MEAN CORPUSCULAR HEMOGLOBIN 30 pg (25-34); MEAN CORPUSCULAR HGB CONC 34 g/dL (32-36); MEAN CORPUSCULAR VOLUME 90 fL (80-99); MEAN PLATELET VOLUME 10.2 fL (9.0-12.2); PLATELET COUNT 181 10^3/uL (130-400); WHITE BLOOD COUNT 14.1 10^3/uL (4.3-11.0)
[2023-06-01] MEDS ORDERED: HOLD METFORMIN - RECEIVED CONTRAST 20 ML VIAL IV SCH (11:30)
[2023-06-01] MEDS ORDERED: IOHEXOL 350 MG/ML 100 ML (OMNIPAQUE 350) VIAL IV ONE (11:30)
[2023-06-01] MEDS ORDERED: NS 100 ML (IVPB) BAG IV ONE (11:30)
[2023-06-01] MEDS: fentaNYL INJECTION 100 MCG/2 ML VIAL IVP PRN (11:39)
--- NOTE | 2023-06-01 12:00 | Diagnostic Imaging Report ---
PROCEDURE: CT head without contrast. TECHNIQUE: Multiple contiguous axial images were obtained through the brain without the use of intravenous contrast. Auto Exposure Controls were utilized during the CT exam to meet ALARA standards for radiation dose reduction. INDICATION: Altered mental status. COMPARISON: CT of the head on 04/07/2023. FINDINGS: The mendoza-white matter differentiation is preserved. No acute intracranial hemorrhage. The ventricles and cortical sulci are normal. No midline shift or mass effect. No intracranial mass or fluid collection. The sella is normal. The subarachnoid cisterns are normal. No Chiari malformation. The paranasal sinuses and mastoids are clear. The globes and orbits are normal. The skull is intact. IMPRESSION: No acute intracranial hemorrhage. No large vascular territory modi-white loss. No intracranial mass, midline shift, or hydrocephalus. Dictated by: Dictated on workstation # [id number]
--- NOTE | 2023-06-01 12:08 | Diagnostic Imaging Report ---
EXAMINATION: CTA of the chest utilizing PE protocol TECHNIQUE: CTA postcontrast CT of the chest utilizing PE protocol. Coronal and sagittal and MIP reconstructions performed. Auto Exposure Controls were utilized during the CT exam to meet ALARA standards for radiation dose reduction. HISTORY: Shortness of breath COMPARISON: CT abdomen pelvis on 04/23/2023. FINDINGS: Normal caliber pulmonary artery. No acute pulmonary emboli. Normal caliber aorta. Bibasilar airspace opacities and small bilateral pleural effusions.. No pneumothorax. No suspicious nodules. There is no axillary or supraclavicular lymphadenopathy. There is no mediastinal lymphadenopathy. Pneumomediastinum is noted. Heart size is normal. There are no coronary artery calcifications. No pericardial effusion. Aorta is normal in caliber. Included views of the abdomen demonstrates free air likely from recent surgery. IMPRESSION: Small bilateral pleural effusions and bibasilar airspace opacities. Pneumoperitoneum and pneumomediastinum may be related to recent surgical history. Recommend clinical correlation. I do not have any recent CT abdomen the abdomen and pelvis for comparison. If there is clinical concern for bowel injury then CT of the abdomen and pelvis could be considered. Dictated by: Dictated on workstation # [id number]
[2023-06-01] MEDS: morphine INJ 4 MG/ML 1 ML (VIAL/SYRINGE) IVP PRN ×4 (13:38→23:52)
--- NOTE | 2023-06-01 15:11 | Progress Note ---
Subjective Date Seen by a Provider: Jun 01, 2023 Time Seen by a Provider: 15:00 Subjective/Events-last exam patient having recurrent issues with severe pain then fatigue/obtundati on/unresonsiveness. CT head and chest normal. labs close to normal. has a hx of this behavior on 2 other previous admissions. VSS and physically seems to be doing well. no bowel fxn. Focused Exam Lactate Level 05/29/23 19:30: Lactic Acid Level 1.00 Objective Exam Vital Signs Date Time Temp Pulse Resp B/P (MAP) Pulse Ox O2 Delivery O2 Flow Rate FiO2 06/01/23 12:16 37.2 108 22 139/89 (106) 93 Room Air 2.00 2.00 06/01/23 12:14 37.2 108 22 139/89 (106) 93 Room Air 2.00 2.00 06/01/23 12:00 108 22 139/89 (106) 93 Room Air 06/01/23 08:00 Room Air 06/01/23 07:41 37.2 104 14 147/88 (107) 96 Room Air 06/01/23 03:48 36.5 103 16 131/80 (97) 93 Room Air 06/01/23 00:18 36.8 115 12 140/72 (94) 91 Room Air 05/31/23 20:57 37.2 115 16 133/76 (95) 93 Room Air 05/31/23 20:00 Room Air 05/31/23 19:47 36.9 114 16 134/77 (96) 95 Room Air 05/31/23 16:00 36.8 107 16 133/70 (91) 95 Room Air I & O 06/01/23 07:00 Intake Total 1480 ml Output Total 2370 ml Balance -890 ml Capillary Refill : General Appearance: No Apparent Distress HEENT: PERRL/EOMI Neck: Full Range of Motion Respiratory: Chest Non Tender, Decreased Breath Sounds Cardiovascular: Regular Rate, Rhythm Gastrointestinal: soft, tenderness, other (inc clean/dry, minimal SS SHIRA output) Extremity: Normal Capillary Refill Neurologic/Psychiatric: Alert, Sensory Deficit Skin: Normal Color Lymphatic: No Adenopathy Results Lab Laboratory Tests 06/01/23 04:05: White Blood Count 15.3H, Red Blood Count 2.64L, Hemoglobin 8.0L, Hematocrit 24L, Mean Corpuscular Volume 89, Mean Corpuscular Hemoglobin 30, Mean Corpuscular Hemoglobin Concent 34, Red Cell Distribution Width 12.2, Platelet Count 177, Mean Platelet Volume 10.0, Immature Granulocyte % (Auto) 1, Neutrophils (%) (Auto) 81H, Lymphocytes (%) (Auto) 11L, Monocytes (%) (Auto) 7, Eosinophils (%) (Auto) 1, Basophils (%) (Auto) 0, Neutrophils # (Auto) 12.4H, Lymphocytes # (Auto) 1.7, Monocytes # (Auto) 1.0, Eosinophils # (Auto) 0.1, Basophils # (Auto) 0.0, Immature Granulocyte # (Auto) 0.1, Neutrophils % (Manual) 81, Lymphocytes % (Manual) 13, Monocytes % (Manual) 6, Sodium Level 136, Potassium Level 3.6, Chloride Level 101, Carbon Dioxide Level 26, Anion Gap 9, Blood Urea Nitrogen 8, Creatinine 0.61, Estimat Glomerular Filtration Rate 142, BUN/Creatinine Ratio 13, Glucose Level 93, Calcium Level 8.1L, Corrected Calcium 9.1, Total Bilirubin 0.6, Aspartate Amino Transf (AST/SGOT) 12, Alanine Aminotransferase (ALT/SGPT) 15, Alkaline Phosphatase 49, Total Protein 5.2L, Albumin 2.7L 06/01/23 10:52: Glucometer 120H 06/01/23 11:08: White Blood Count 14.1H, Red Blood Count 2.70L, Hemoglobin 8.2L, Hematocrit 24L, Mean Corpuscular Volume 90, Mean Corpuscular Hemoglobin 30, Mean Corpuscular Hemoglobin Concent 34, Red Cell Distribution Width 12.3, Platelet Count 181, Mean Platelet Volume 10.2 Microbiology 05/29/23 Blood Culture - Preliminary, Resulted No growth 05/28/23 MRSA Screen - Final, Complete MRSA not isolated Assessment/Plan Assessment/Plan Assess & Plan/Chief Complaint s/p colon resection, low anterior colorectal anastomosis, reversal colostomy. intermittent altered mentation with similar behavior on 2 other previous admissions. will minimize narcotic pain meds. cont. ibuprofen 800mg TID scheduled. continue ambulation/PT. CT head and chest normal. await bowel fxn then advance diet. JEAN SMITH MD Jun 01, 2023 15:11
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
[2023-06-01] MEDS: GABAPENTIN 100 MG CAPSULE PO SCH (20:29)
[2023-06-01] MEDS: ACETAMINOPHEN 500 MG TABLET PO SCH (20:30)
[2023-06-02] VITALS (7 sets, daily range): BP systolic 127–141; BP diastolic 62–88
[2023-06-02] MEDS: morphine INJ 4 MG/ML 1 ML (VIAL/SYRINGE) IVP PRN ×3 (03:15→07:44)
[2023-06-02] MEDS: METOCLOPRAMIDE INJ 10 MG/2 ML IVP PRN (03:19)
[2023-06-02 04:35] LABS: BASOPHILS % (AUTO) 0 % (0-10); EOSINOPHILS # (AUTO) 0.1 10^3/uL (0.0-0.3); EOSINOPHILS % (AUTO) 0 % (0-10); HEMATOCRIT 24 % (40-54); HEMOGLOBIN 8.1 g/dL (13.3-17.7); LYMPHOCYTES # (AUTO) 1.3 10^3/uL (1.0-4.0); LYMPHOCYTES % (AUTO) 11 % (12-44); MEAN CORPUSCULAR HEMOGLOBIN 30 pg (25-34); MEAN CORPUSCULAR HGB CONC 34 g/dL (32-36); MEAN CORPUSCULAR VOLUME 89 fL (80-99); MEAN PLATELET VOLUME 10.1 fL (9.0-12.2); MONOCYTES % (AUTO) 8 % (0-12); NEUTROPHILS # (AUTO) 9.8 10^3/uL (1.8-7.8); NEUTROPHILS % (AUTO) 80 % (42-75); PLATELET COUNT 227 10^3/uL (130-400); WHITE BLOOD COUNT 12.3 10^3/uL (4.3-11.0)
[2023-06-02 04:43] LABS: POTASSIUM 3.3 MMOL/L (3.6-5.0)
[2023-06-02 04:44] LABS: CALCIUM 8.4 MG/DL (8.5-10.1)
[2023-06-02 04:48] LABS: CREATININE SERUM 0.59 MG/DL (0.60-1.30)
[2023-06-02 04:51] LABS: MAGNESIUM 1.7 MG/DL (1.6-2.4)
[2023-06-02] MEDS: POTASSIUM CL 10MEQ/50ML IVPB 50 ML IV SCH ×9 (05:15→12:45)
[2023-06-02] MEDS: POTASSIUM CHLORIDE 20 MEQ TABLET PO SCH (05:16)
[2023-06-02] MEDS: MAGNESIUM 1 GM/100 ML IVPB 100 ML IV SCH ×4 (05:16→07:44)
--- NOTE | 2023-06-02 07:11 | Physical Therapy Progress Note ---
Therapy Progress Note PT will require new orders due to events over the weekend and transfer to ICU then back to [address] [place] [id number]. COLE WINKLER PT Jun 02, 2023 07:11
[2023-06-02] MEDS: LACTATED RINGERS 1,000 ML 1,000 ML IV SCH ×3 (08:55→19:42)
[2023-06-02] MEDS: ACETAMINOPHEN 500 MG TABLET PO SCH ×3 (08:55→21:25)
[2023-06-02] MEDS: GABAPENTIN 100 MG CAPSULE PO SCH ×2 (08:55→21:05)
[2023-06-02] MEDS: SENNA W/DOCUSATE TABLET PO SCH (08:57)
[2023-06-02] MEDS: PANTOPRAZOLE INJECTION 40 MG VIAL IV SCH (09:27)
[2023-06-02] MEDS: metroNIDAZOLE 500MG/100ML IVPB 100 ML IV SCH ×2 (10:40→21:25)
[2023-06-02] MEDS: oxyCODONE/ACETAMINOPHEN 5/325MG TABLET PO PRN ×2 (11:18→19:42)
--- NOTE | 2023-06-02 15:46 | Progress Note ---
Subjective Date Seen by a Provider: Jun 02, 2023 Time Seen by a Provider: 15:00 Subjective/Events-last exam doing better, did pass flatus and had BM. still complains of pain issues however appears relatively comfortable. no fever/chills. ambulating some with assistance. Objective Exam Vital Signs Date Time Temp Pulse Resp B/P (MAP) Pulse Ox O2 Delivery O2 Flow Rate FiO2 06/02/23 15:24 36.1 77 20 140/78 (98) 98 Room Air 06/02/23 11:46 37.2 91 17 129/62 (84) 97 Room Air 06/02/23 08:00 Room Air 06/02/23 07:33 36.4 107 16 141/84 (103) 95 Room Air 06/02/23 03:57 36.9 107 18 132/78 (96) 97 Room Air 06/02/23 00:05 37.1 93 18 129/72 (91) 98 Room Air 06/01/23 20:27 37.5 110 18 142/79 (100) 97 Room Air 06/01/23 20:00 Room Air 06/01/23 15:52 37.5 107 18 144/79 (100) 96 Room Air I & O 06/02/23 07:00 Intake Total 620 ml Output Total 2605 ml Balance -1985 ml Capillary Refill : General Appearance: No Apparent Distress HEENT: PERRL/EOMI Neck: Full Range of Motion Respiratory: Chest Non Tender, Decreased Breath Sounds Cardiovascular: Regular Rate, Rhythm Gastrointestinal: soft, tenderness, other (incisions clean/dry) Extremity: Normal Capillary Refill Neurologic/Psychiatric: Alert Skin: Normal Color Lymphatic: No Adenopathy Results Lab Laboratory Tests 06/02/23 04:20: White Blood Count 12.3H, Red Blood Count 2.69L, Hemoglobin 8.1L, Hematocrit 24L, Mean Corpuscular Volume 89, Mean Corpuscular Hemoglobin 30, Mean Corpuscular Hemoglobin Concent 34, Red Cell Distribution Width 12.2, Platelet Count 227, Mean Platelet Volume 10.1, Immature Granulocyte % (Auto) 1, Neutrophils (%) (Auto) 80H, Lymphocytes (%) (Auto) 11L, Monocytes (%) (Auto) 8, Eosinophils (%) (Auto) 0, Basophils (%) (Auto) 0, Neutrophils # (Auto) 9.8H, Lymphocytes # (Auto) 1.3, Monocytes # (Auto) 1.0, Eosinophils # (Auto) 0.1, Basophils # (Auto) 0.0, Immature Granulocyte # (Auto) 0.1, Sodium Level 138, Potassium Level 3.3L, Chloride Level 101, Carbon Dioxide Level 26, Anion Gap 11, Blood Urea Nitrogen 6L, Creatinine 0.59L, Estimat Glomerular Filtration Rate 143, BUN/Creatinine Ratio 10, Glucose Level 103, Calcium Level 8.4L, Magnesium Level 1.7 Microbiology 05/29/23 Blood Culture - Preliminary, Resulted No growth 05/28/23 MRSA Screen - Final, Complete MRSA not isolated Assessment/Plan Assessment/Plan Assess & Plan/Chief Complaint s/p colon resection, low anterior colorectal anastomosis, reversal colostomy. intermittent altered mentation with similar behavior on 2 other previous admissions. will minimize narcotic pain meds. cont. ibuprofen 800mg TID scheduled. continue ambulation/PT. CT head and chest normal. await bowel fxn then advance diet. JEAN SMITH MD Jun 02, 2023 15:46
[2023-06-03 03:34] VITALS: BP 136/69
[2023-06-03] MEDS: LACTATED RINGERS 1,000 ML 1,000 ML IV SCH ×2 (03:55→15:57)
[2023-06-03] MEDS: oxyCODONE/ACETAMINOPHEN 5/325MG TABLET PO PRN ×2 (04:05→11:40)
[2023-06-03 05:27] LABS: BASOPHILS % (AUTO) 0 % (0-10); EOSINOPHILS # (AUTO) 0.1 10^3/uL (0.0-0.3); EOSINOPHILS % (AUTO) 1 % (0-10); HEMATOCRIT 25 % (40-54); HEMOGLOBIN 8.2 g/dL (13.3-17.7); LYMPHOCYTES # (AUTO) 1.3 10^3/uL (1.0-4.0); LYMPHOCYTES % (AUTO) 12 % (12-44); MEAN CORPUSCULAR HEMOGLOBIN 30 pg (25-34); MEAN CORPUSCULAR HGB CONC 34 g/dL (32-36); MEAN CORPUSCULAR VOLUME 89 fL (80-99); MEAN PLATELET VOLUME 9.3 fL (9.0-12.2); MONOCYTES # (AUTO) 0.9 10^3/uL (0.0-1.0); MONOCYTES % (AUTO) 8 % (0-12); NEUTROPHILS # (AUTO) 8.2 10^3/uL (1.8-7.8); NEUTROPHILS % (AUTO) 77 % (42-75); PLATELET COUNT 292 10^3/uL (130-400); WHITE BLOOD COUNT 10.6 10^3/uL (4.3-11.0)
[2023-06-03 05:36] LABS: POTASSIUM 3.6 MMOL/L (3.6-5.0)
[2023-06-03 05:37] LABS: CALCIUM 8.3 MG/DL (8.5-10.1)
[2023-06-03 05:42] LABS: CREATININE SERUM 0.58 MG/DL (0.60-1.30)
[2023-06-03 05:44] LABS: MAGNESIUM 1.8 MG/DL (1.6-2.4)
[2023-06-03] MEDS: POTASSIUM CHLORIDE 20 MEQ TABLET PO SCH (06:05)
[2023-06-03] MEDS: POTASSIUM CL 10MEQ/50ML IVPB 50 ML IV SCH (06:05)
[2023-06-03] MEDS: MAGNESIUM 1 GM/100 ML IVPB 100 ML IV SCH ×3 (06:05→08:35)
[2023-06-03 07:21] VITALS: BP 133/81
[2023-06-03] MEDS: GABAPENTIN 100 MG CAPSULE PO SCH (08:35)
[2023-06-03] MEDS: SENNA W/DOCUSATE TABLET PO SCH (08:36)
[2023-06-03] MEDS: ACETAMINOPHEN 500 MG TABLET PO SCH ×2 (08:36→13:46)
[2023-06-03] MEDS: PANTOPRAZOLE INJECTION 40 MG VIAL IV SCH (08:36)
[2023-06-03] MEDS: METHYLNALTREXONE 12 MG/0.6 ML VIAL SQ SCH (08:40)
[2023-06-03] MEDS ORDERED: POTASSIUM CHLORIDE 20 MEQ TABLET PO ONE (09:00)
[2023-06-03 11:17] VITALS: BP 130/77
[2023-06-03] MEDS: metroNIDAZOLE 500MG/100ML IVPB 100 ML IV SCH (11:37)
[2023-06-03 16:17] VITALS: BP 126/92
[2023-06-03] MEDS ORDERED: METR-145 PO (17:36)
[2023-06-03] MEDS ORDERED: LEVO-55 PO (17:36)
--- NOTE | 2023-06-03 17:40 | Progress Note ---
Subjective Date Seen by a Provider: Jun 03, 2023 Time Seen by a Provider: 17:00 Subjective/Events-last exam doing much better in past 2 days. ambulating better. pain better controlled. passing flatus and having multiple BM's. tolerating regular diet. wounds clean/dry Objective Exam Vital Signs Date Time Temp Pulse Resp B/P (MAP) Pulse Ox O2 Delivery O2 Flow Rate FiO2 06/03/23 16:17 36.5 84 15 126/92 (103) 100 Room Air 06/03/23 11:17 36.2 85 18 130/77 (94) 98 Room Air 06/03/23 08:00 Room Air 06/03/23 07:21 36.0 83 16 133/81 (98) 99 Room Air 06/03/23 03:34 36.4 90 18 136/69 (91) 100 Room Air 06/02/23 23:35 36.5 99 18 127/70 (89) 100 Room Air 06/02/23 20:00 Room Air 06/02/23 19:05 36.9 98 18 133/88 (103) 100 Room Air I & O 06/03/23 06:59 Intake Total 2740 ml Output Total 40 ml Balance 2700 ml Capillary Refill : General Appearance: No Apparent Distress HEENT: PERRL/EOMI Neck: Full Range of Motion Respiratory: Chest Non Tender, Normal Breath Sounds Cardiovascular: Regular Rate, Rhythm Gastrointestinal: soft, tenderness, other (wounds clean/dry) Extremity: Normal Capillary Refill Neurologic/Psychiatric: Alert Skin: Normal Color Lymphatic: No Adenopathy Results Lab Laboratory Tests 06/03/23 05:20: White Blood Count 10.6, Red Blood Count 2.75L, Hemoglobin 8.2L, Hematocrit 25L, Mean Corpuscular Volume 89, Mean Corpuscular Hemoglobin 30, Mean Corpuscular Hemoglobin Concent 34, Red Cell Distribution Width 12.3, Platelet Count 292, Mean Platelet Volume 9.3, Immature Granulocyte % (Auto) 1, Neutrophils (%) (Auto) 77H, Lymphocytes (%) (Auto) 12, Monocytes (%) (Auto) 8, Eosinophils (%) (Auto) 1, Basophils (%) (Auto) 0, Neutrophils # (Auto) 8.2H, Lymphocytes # (Auto) 1.3, Monocytes # (Auto) 0.9, Eosinophils # (Auto) 0.1, Basophils # (Auto) 0.0, Immature Granulocyte # (Auto) 0.1, Sodium Level 137, Potassium Level 3.6, Chloride Level 101, Carbon Dioxide Level 25, Anion Gap 11, Blood Urea Nitrogen 5L, Creatinine 0.58L, Estimat Glomerular Filtration Rate 144, BUN/Creatinine Ratio 9, Glucose Level 103, Calcium Level 8.3L, Magnesium Level 1.8 Microbiology 05/29/23 Blood Culture - Preliminary, Resulted No growth 05/28/23 MRSA Screen - Final, Complete MRSA not isolated Assessment/Plan Assessment/Plan Assess & Plan/Chief Complaint s/p colon resection, low anterior colorectal anastomosis, reversal colostomy. intermittent altered mentation with similar behavior on 2 other previous admissions. will minimize narcotic pain meds. cont. ibuprofen 800mg TID scheduled. continue ambulation/PT. CT head and chest normal. ambulating better and better pain control. having BM's and tolerating reg diet. will d/c SHIRA drain and home soon and f/u office 1 week. JEAN SMITH MD Jun 03, 2023 17:40
[2023-06-04] MEDS ORDERED: LevoFLOXacin 500 MG TABLET PO SCH (11:00)
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
== END 2023-06-03 17:50 | disposition home or self-care (01) | DRG 344 ==
LOC: CSD 05-28 09:57 → SURG 05-28 09:58 → 4TH 05-28 20:10 → ICU 05-29 18:20 → 4TH 05-31 15:40
PROVIDERS: ADMIT Surgery; ATTEND Surgery
PROC: 0DSN4ZZ Reposition Sigmoid Colon, Percutaneous Endoscopic Approach (ICD-10-PCS; principal; 2023-05-28 16:45)
PROC: 02HV33Z Insertion of Infusion Device into Superior Vena Cava, Percutaneous Approach (ICD-10-PCS; 2023-05-29)
PROC: 0W3G4ZZ Control Bleeding in Peritoneal Cavity, Percutaneous Endoscopic Approach (ICD-10-PCS; 2023-05-29 20:54)
DX: Z43.3 Encounter for attention to colostomy (principal); G93.41 Metabolic encephalopathy; D62 Acute posthemorrhagic anemia; K91.841 Postprocedural hemorrhage of a digestive system organ or structure following other procedure; R00.0 Tachycardia, unspecified; F91.9 Conduct disorder, unspecified; Z87.891 Personal history of nicotine dependence
CPT/HCPCS: 36415; 36600; 70450; 71045; 71275; 74018; 80048; 80053; 82805; 82947; 83605; 83735; 85007; 85014; 85018; 85025; 85027; 85379; 85384; 85610; 85730; 86850; 86900; 86901; 86920; 87040; 87081; 93005; 93306; 94640; 94760

== ENCOUNTER 2023-06-07 20:03 | Emergency (ER) | payer SELFPAY ==
[~2023-06-07] VITALS: Ht 165.1 cm; Wt 69.4 kg
[~2023-06-07 20:03] MED LIST changes: +LEVO-55 PO; +METR-145 PO
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
[2023-06-07 23:14] VITALS: BP 121/67
== END 2023-06-07 23:14 | disposition home or self-care (01) ==
LOC: EDUNIT# 20:03 → ER 20:05
DX: T81.33XA Disruption of traumatic injury wound repair, initial encounter (principal)
CPT/HCPCS: 12021